=== PATIENT | female | born 1960 | race Caucasian/White ===

== ENCOUNTER 2018-07-09 14:22 | Inpatient (IN) | payer MEDICAID, OTHER ==
[~2018-07-09] VITALS: Ht 170.2 cm; Wt 77.0 kg
[~2018-07-09 14:22] MED LIST: CARAS GTB; PANT40TA3 PO; SPIR50TA PO
--- NOTE | 2018-07-09 14:38 | ERD ---
ER Documentation Chief Complaint Chief Complaint bib ra from street for sob, recent pneumonia HPI The patient is a 49-year-old homeless female, presenting to the ER because of acute dyspnea, O2 saturation was 85-90% on room air, wheezing bilaterally. She was treated with albuterol 5 mg nebulizer by EMS with some response. She re cently had pneumonia, denies fever, complains of cough, denies neck pain, chest pain, abdominal pain, vomiting, dizzy, diarrhea. History is limited due to her clinical condition Past medical history: Hepatitis C, history of GI bleed due to esophageal varices and esophagitis ROS All systems reviewed and are negative except as per history of present illness. Medications Home Meds Discontinued Scripts Pantoprazole* (Protonix*) 40 Mg Tablet.dr, 40 MG PO BID for 30 Days, TAB Prov:STALIN LONGORIA MD 11/30/15 Spironolactone* (Aldactone*) 50 Mg Tablet, 100 MG PO BID DIURETICS for 30 Days, #30 TAB Prov:STALIN LONGORIA MD 11/30/15 Sucralfate* (Carafate* (Pediatric)) 100 Mg/Ml Susp, 1 GM GTB QID for 30 Days, BOT Prov:STALIN LONGORIA MD 11/30/15 Allergies Allergies: Coded Allergies: No Known Allergy (Unverified , 07/09/18) PMhx/Soc Medical and Surgical Hx: pt denies Medical Hx, pt denies Surgical Hx History of Surgery: No Anesthesia Reaction: No Hx Neurological Disorder: No Hx Respiratory Disorders: Yes (asthma ) Hx Cardiac Disorders: No Hx Psychiatric Problems: No Hx Miscellaneous Medical Probl: No Hx Alcohol Use: Yes (ayesha one time few days ago. ) Hx Substance Use: No Hx Tobacco Use: Yes (4 a day. ) Smoking Status: Never smoker Physical Exam Vitals Vital Signs Date Temp Pulse Resp B/P (MAP) Pulse Ox O2 O2 Flow FiO2 Time Delivery Rate 07/09/18 112 18 122/80 98 Room Air 20:01 (94) 07/09/18 98.1 112 22 158/86 98 Room Air 4.0 16:30 (110) BIPAP 07/09/18 107 22 100 Nasal 6.0 15:01 Cannula 07/09/18 Venti Mask 10 14:40 07/09/18 Venti Mask 14:29 07/09/18 98.3 115 25 171/98 100 BIPAP 14:29 (122) 07/09/18 98.3 114 25 172/100 100 14:26 (124) Physical Exam Const: No acute distress. Head: Atraumatic. Eyes: Normal Conjunctiva. ENT: Normal External Ears, Nose and Mouth. Neck: Full range of motion. No meningismus. Resp: Tachypneic, Bilateral expiratory wheezes Cardio: Regular tachycardic Abd: Soft, non distended, normal bowel sounds, non tender. Skin: No petechiae or rashes. Back: No midline or flank tenderness. Ext: No cyanosis, or edema. Neur: Awake and alert. No focal deficit Psych: Normal Mood and Affect. Result Diagram: 07/09/18 1509 07/09/18 1509 Results 24 hrs Laboratory Tests Test 07/09/18 15:09 07/09/18 15:24 07/09/18 16:00 07/09/18 16:30 White Blood 6.8 10^3/ul Count Red Blood Count 4.37 10^6/ul Hemoglobin 9.0 g/dl Hematocrit 31.9 % Mean Corpuscular 73.0 fl Volume Mean Corpuscular 20.6 pg Hemoglobin Mean Corpuscular 28.2 g/dl Hemoglobin Giovanna nt Red Cell 19.0 % Distribution Width Platelet Count 171 10^3/UL Mean Platelet 10.1 fl Volume Immature 0.900 % Granulocytes % Neutrophils % 67.8 % Lymphocytes % 12.4 % Monocytes % 12.4 % Eosinophils % 6.1 % Basophils % 0.4 % Nucleated Red 0.0 /100WBC Blood Cells % Immature 0.060 10^3/ul Granulocytes # Neutrophils # 4.6 10^3/ul Lymphocytes # 0.8 10^3/ul Monocytes # 0.8 10^3/ul Eosinophils # 0.4 10^3/ul Basophils # 0.0 10^3/ul Nucleated Red 0.0 10^3/ul Blood Cells # Prothrombin Time 15.5 Sec Prothrombin Time 1.2 Ratio INR 1.22 International Normalized Ratio Activated 29.0 Sec Partial Thrombop last Time Sodium Level 135 mmol/L Potassium Level 4.4 mmol/L Chloride Level 102 mmol/L Carbon Dioxide 25 mmol/L Level Anion Gap 8 Blood Urea 12 mg/dl Nitrogen Creatinine 0.37 mg/dl Est Glomerular > 60 mL/min Filtrat Rate mL/min Glucose Level 107 mg/dl Calcium Level 8.3 mg/dl Total Bilirubin 0.9 mg/dl Direct Bilirubin 0.00 mg/dl Indirect 0.9 mg/dl Bilirubin Aspartate Amino 105 IU/L Transf (AST/SGOT ) Alanine 55 IU/L Aminotransferase (ALT/SGPT) Alkaline 135 IU/L Phosphatase Troponin I < 0.012 ng/ml Total Protein 8.0 g/dl Albumin 3.6 g/dl Globulin 4.40 g/dl Albumin/Globulin 0.81 Ratio POC Venous 1.9 mmol/L Lactate Blood Gas Blood arterial Specimen Source Arterial Blood 07/09/2018 4:05:0 Date Drawn 4 PM Arterial Blood 7.394 pH (Temp corrected) Arterial Blood 38.1 mmhg pCO2 (Temp correct) Arterial Blood 186.0 mmHG pO2 (Temp corrected) Arterial Blood 22.8 mmol/L HCO3 Arterial Blood -1.9 mmol/L Base Excess Arterial Blood 99.4 mmHG Oxygen Saturatio n Arturo Test ACCEPTAB Arterial Blood Right Radial Gas Puncture Site Arterial 0.9 % Blood Carboxyhem oglobin Arterial Blood 0.5 % Methemoglobin Blood Gas A-a O2 207.1 mmHg Differential Oxyhemoglobin 98.0 % Percent Blood Gas 37.0 C Temperature Blood Gas MASK - SIMPLE Modality FiO2 61.0 % Blood Gas DT Notified Whom Blood Gas 07/09/2018 4:22:5 Notified Time 8 PM Urine Color YELLOW Urine Clarity CLEAR Urine pH 5.0 Urine Specific 1.013 [place] Urine Ketones NEGATIVE mg/dL Urine Nitrite NEGATIVE mg/dL Urine Bilirubin NEGATIVE mg/dL Urine NEGATIVE mg/dL Urobilinogen Urine Leukocyte NEGATIVE Asmita/ul Esterase Urine 5 /HPF Microscopic RBC Urine 18 /HPF Microscopic WBC Urine Squamous FEW /HPF Epithelial Cells Urine Bacteria FEW /HPF Urine Hemoglobin 2+ mg/dL Urine Glucose NEGATIVE mg/dL Urine Total 2+ mg/dl Protein Test 07/09/18 17:24 POC Venous 3.0 mmol/L Lactate Current Medications Medications Dose Sig/Jagdeep Start Time Status Last (Trade) Ordered Route PRN Stop Time Admin Dose Reason Admin Sodium 1,980 ml BOLUS OVER 2 07/09/18 DC 07/09/18 Chloride HOURS STAT 14:39 07/09/18 15:18 (NS) IV* 14:41 3.75 mg ONCE STAT 07/09/18 DC 07/09/18 Levalbuterol INH 14:39 07/09/18 14:56 (Xopenex 14:41 Neb) Ipratropium 1.5 mg ONCE STAT 07/09/18 DC 07/09/18 [place] INH 14:39 07/09/18 14:57 (Atrovent 14:41 0.02% (Neb)) 125 mg ONCE ONCE 07/09/18 DC 07/09/18 Methylprednis IV 16:00 07/09/18 15:51 olone Sodium 16:01 Succinate (Solu-Medrol) Vancomycin 250 ml @ ONCE ONCE 07/09/18 DC 07/09/18 HCl 125 mls/hr IVPB 18:00 07/09/18 19:47 19:59 Cefepime HCl 50 ml @ ONCE ONCE 07/09/18 DC 07/09/18 100 mls/hr IVPB 18:00 07/09/18 18:08 18:29 IV Flush 3 ml PER 07/09/18 (NS 3 ml) PROTOCOL IV 18:30 Ondansetron 4 mg Q6H PRN 07/09/18 HCl (Zofran IV NAUSEA 18:30 Inj) AND/OR VOMITING 650 mg Q6H PRN 07/09/18 Acetaminophen PO PAIN 18:30 (Tylenol LEVEL 1-3 OR Tab) FEVER 40 mg DAILY@06 07/10/18 Pantoprazole PO 06:00 (Protonix Tab) Albuterol/ 3 ml Q4H RESP 07/09/18 Ipratropium THERAPY PRN 18:30 (Duoneb) HHN SHORTNESS OF BREATH Prednisone 40 mg DAILY PO 07/10/18 (Prednisone) 09:00 07/14/18 12:00 100 ml @ Q24H IVPB 07/09/18 Levofloxacin/ 100 mls/hr 19:30 Dextrose Procedures/[place] [id number] Radiology Main Line: [phone] DIAGNOSTIC IMAGING REPORT Patient: THADDEUS STUBBS : 1960 Age: 57 Sex: F MR #: [id number] DOS: 07/09/18 1541 Ordering MD: LAURA DELGADO MD Location: E/R Room/Bed: PROCEDURE: CT chest without contrast. CLINICAL INDICATION: Shortness of breath TECHNIQUE: CT scan of the chest without contrast was performed on a multi- slice CT scanner. The patient was scanned without administration of intravenous contrast. Coronal and sagittal reformatted images were obtained from the axial source images. One or more of the following dose reduction techniques were used: Automated exposure control. Adjustment of the mA and/or kV according to patient size. Use of iterative reconstruction technique. DICOM images are available DLP vol 223.89 mGy CTDI 6.29 mGy-cm COMPARISON: None. FINDINGS: Lungs: There is prominent bilateral diffuse airways wall thickening without occlusion. Subpleural mild scarring is seen. There is trace subpleural emphysema bilaterally. There is no lung consolidation or pleural effusion or pneumothorax. The airways are patent. There is no suspicious nodule or mass. Mediastinum: Normal. Cardiovascular: Aortic and coronary artery atherosclerotic calcifications are present. The vascular structures are normal in course and caliber. Lymph nodes: There are no enlarged axillary or mediastinal lymph nodes. Musculoskeletal: Degenerative changes are seen within the thoracic spine and shoulders with no acute osseous abnormality. Upper abdomen: There is a nodular appearance of the liver with the presence of prominent upper abdominal varices including a enlarged umbilical vein. Other: None IMPRESSION: Mild emphysema is present with subpleural scarring. There is diffuse bilateral prominent airways wall thickening suggestive for airways inflammation without airways occlusion. The lungs are otherwise clear. Atherosclerotic disease. Hepatic cirrhosis with varices. RPTAT: AA .Joselyn Ayon MD, MD Date Time Electronically viewed and signed by .Joselyn Ayon MD, MD on 07/09/2018 17:33 .J/ CC: LAURA DELGADO MD [id number] [place] [address] Radiology Main Line: [phone] DIAGNOSTIC IMAGING REPORT Patient: THADDEUS STUBBS : 1960 Age: 57 Sex: F MR #: [id number] DOS: 07/09/18 1439 Ordering MD: LAURA DELGADO MD Location: E/R Room/Bed: PROCEDURE: XR Chest. CLINICAL INDICATION: chest pain TECHNIQUE: Single frontal view of the chest was obtained COMPARISON: 11/26/15 FINDINGS: The heart and mediastinum are within normal limits. There is a 1.3 cm possible nodule in the left lower lobe. There is no focal infiltrate. There is no pleural effusion or pneumothorax. RPTAT: AA IMPRESSION: 1.3 cm possible nodule in the left lower lobe. Further evaluation with CT chest is recommended. .Fercho Sprague MD, MD Date Time Electronically viewed and signed by .Fercho Sprague MD, MD on 07/09/2018 15:1 8 .S/ CC: LAURA DELGADO MD [id number] EKG: Read by emergency physician Rate/Rhythm: Sinus tachycardia 110 beats/min QRS, ST, T-waves: No ST elevation, no T inversion, shortened NC interval Impression: Abnormal EKG MEDICAL MAKING DECISION: The patient is a 57-year-old female, presenting with acute severe sepsis, acute asthma exacerbation. She was treated with Xopenex 3.75 mg and Atrovent 1.5 mg continuous nebulizer over one hour, Solu-Medrol 125 mg IV, normosaline 30 ml millimeters per kilogram IV/vancomycin IV/cefepime IV for acute severe sepsis The differential diagnoses considered include but are not limited to pneumonia, aspiration pneumonia, COPD, PE, asthma MDM: Patient's infectious symptoms have not stabilized and the patient is at risk of rapid decompensation. The patient will be admitted for careful hydration, antibiotic therapy, and infectious source control. SEVERE SEPSIS CRITERIA: Infectious source:unknown End organ damage indicated by: Lactate > 2.0 mmol/L Acute Resp Failure (sat < 92% w/o oxygen) SEPSIS MANAGEMENT Time of recognition of severe sepsis: 5:45 pm 3 HOUR BUNDLE Blood cultures x 2 before broad-spectrum antibiotics: Yes 30 ml/kg NS bolus completed Initial lactate3 Repeat lactatepending SEPTIC SHOCK ASSESSMENT: No lactic acid > 4.0 No persistent hypotension (SBP < 90 or 40 mmHg drop, MAP < 65) despite 30 mL/kg IV fluid bolus CRITICAL CARE Critical care time 35 minutes Emergent fluid management while maintaining close respiratory support. Provision of immediate and broad-spectrum antibiotic therapy. Simultaneous assessment for possible sources in order to direct targeted therapy. Consideration for invasive and chemical support to prevent cardiopulmonary collapse. Critical care time is independent of procedures performed. Departure Diagnosis: Primary Impression: Severe sepsis Additional Impressions: Acute asthma Cirrhosis Anemia Condition: Stable Comments The patient's blood pressure was elevated (>120/80) but appears stable without evidence of hypertension emergency or urgency. The patient was counseled about the risks of hypertension and urged to pursue outpatient monitoring and therapy within a week with their primary care physician. I discussed the findings with the patient. I discussed the patient with the hospitalist Dr. Canseco at 5:40 PM. who was made aware of the lab, the treatment, the patient condition. The patient is admitted to [facility] Disclaimer: Inadvertent spelling and grammatical errors are likely due to EHR/dictation software use and do not reflect on the overall quality of patient care. Also, please note that the electronic time recorded on this note does not necessarily reflect the actual time of the patient encounter. LAURA DELGADO MD Jul 09, 2018 14:38
[2018-07-09] MEDS ORDERED: SODIUM CHLORIDE 0.9% 1L BAG IV* STA (14:39)
[2018-07-09] MEDS ORDERED: IPRATROPIUM (NEB) 0.5 MG/2.5 ML AMP INH STA (14:39)
[2018-07-09] MEDS ORDERED: LEVALBUTEROL (NEB) 1.25 MG/0.5 ML AMP INH STA (14:39)
[2018-07-09] MEDS ORDERED: METHYLPREDNISOLONE 125 MG INJ IV ONE (16:00)
[2018-07-09] MEDS ORDERED: VANCOMYCIN 1 GM (PMX) 250 ML IVPB ONE (18:00)
[2018-07-09] MEDS ORDERED: CEFEPIME 1GM/50 ML (PMX) 50 ML IVPB ONE (18:00)
[2018-07-09] MEDS ORDERED: ONDANSETRON 4 MG INJ IV PRN (18:30)
[2018-07-09] MEDS ORDERED: NACL 0.9% 3 ML SYG IV SCH (18:30)
[2018-07-09] MEDS ORDERED: ACETAMINOPHEN 325 MG TAB PO PRN (18:30)
--- NOTE | 2018-07-09 18:41 | HP ---
Date/Time of Note Date/Time of Note DATE: 07/09/18 TIME: 18:29 Assessment/Plan VTE Prophylaxis Pharmacological prophylaxis: NA/contraindicated Pharm contraindication: low risk/ambulating Lines/Catheters IV [facility] [place] Assessment/Plan Assessment/Plan 57 yo woman history of PUD presents with COPD exacerbation #Dyspnea - CT chest shows emphysema. This likely represents new COPD. - Will need outpatient PFTs to confirm diagnosis - For now continue prn nebulizers - prednisone 40mg daily x5 days #Pneumonia #bacteruria - Will treat with levofloxacin x7 days #Cirrhosis - Labs normal currently - Patient reports no more alcohol. #PUD - Cont PPI Result Diagram: 07/09/18 1509 07/09/18 1509 HPI/ROS Admit Date/Time Admit Date/Time Jul 09, 2018 Hx of Present Illness Ms. Quiroga is a homeless 57 yo woman who presents with acute onset SOB. She was in her usual state of health until 2-3 days ago when she developed shortness of breath and cough productive of yellow sputum. She has a red rescue inhaler which helped symptoms somewhat; but over the past few days the cough and dyspnea episodes have progressively worsened. Today was not relieved by inhaler so she called EMS. Patient did not have known respiratory problems during admission in 2016 for PUD. She says no hospitalizations since then. Rescue inhaler was given to her by a friend a few months ago. In the ED she was hypoxic requiring BiPAP. Tachy to 110s, afebrile, hyperte nsive. Got IV steroids and antibiotics with rapid improvement. ROS Denies weight loss, fever, chills, headache, dysphagia, sore throat, chest pain/pressure/palpitations, nausea, vomiting, abdominal pain, dysuria, hematuria. PMH/Family/Social Past Medical History Cirrhosis PUD Medications Current Medications Vancomycin HCl 250 ml @ 125 mls/hr ONCE ONCE IVPB ; Start 07/09/18 at 18:00; Stop 07/09/18 at 19:59 Cefepime HCl 50 ml @ 100 mls/hr ONCE ONCE IVPB Last administered on 07/09/18at 18:08; Admin Dose 100 MLS/HR; Start 07/09/18 at 18:00; Stop 07/09/18 at 18:29 Coded Allergies: No Known Allergy (Unverified , 07/09/18) Past Surgical History Past Surgical Hx: no surgical history Family History Significant Family History: no pertinent family hx Social History Homeless, lives on the [address] with . Alcohol Use: none Smoking Status: Current every day smoker (smokes 1 pack per week. ) Drug Use: marijuana Exam/Review of Systems Vital Signs Vitals Vital Signs Date Temp Pulse Resp B/P (MAP) Pulse Ox O2 O2 Flow FiO2 Time Delivery Rate 07/09/18 107 22 100 Nasal 6.0 15:01 Cannula 07/09/18 98.3 171/98 14:29 (122) Exam Exam Gen: Well appearing clean looking woman in no acute distress on nasal cannula Eyes: PERRL, no icterus HEENT: Clear oropharynx moist mucous membranes no ulcer Neck: No LAD, nontender. Card: Regular rate and rhythm, no murmurs Pulm: End expiratory wheezes diffusely. Abd: Soft, nontender, nondistended. No palpable hepatosplenomegaly. Ext: No cyanosis/clubbing/edema. Skin: warm dry well perfused. ALLISON BARNETT MD Jul 09, 2018 18:40
[2018-07-09 20:22] VITALS: PULSE 116
[2018-07-09 20:30] VITALS: BP 144/73; PULSE 116; RESP 20
[2018-07-09 21:12] VITALS: Ht 170.2 cm; Wt 77.0 kg
[2018-07-09] MEDS: LEVOFLOXACIN 500MG/D5W (PMX) 100 ML IVPB SCH (22:09)
[2018-07-09] MEDS: ALBUTEROL/IPRATROPIUM (NEB) 3 ML AMP HHN PRN (23:35)
[2018-07-09 23:50] VITALS: BP 157/88; PULSE 115; RESP 20
[2018-07-10] VITALS (12 sets, daily range): BP systolic 125–153; BP diastolic 55–78; PULSE 102–119; RESP 19–20
[2018-07-10] MEDS ORDERED: predniSONE 20 MG TAB PO SCH
[2018-07-10] MEDS ORDERED: GUAIFENESIN/DM 5ML CUP ONE (01:13)
[2018-07-10] MEDS: GUAIFENESIN/DM 5ML CUP PO PRN ×2 (01:50→05:29)
[2018-07-10] MEDS: PANTOPRAZOLE (EC) 40 MG TAB PO SCH (05:29)
[2018-07-10] MEDS: ALBUTEROL/IPRATROPIUM (NEB) 3 ML AMP HHN PRN ×2 (05:56→12:41)
[2018-07-10] MEDS: predniSONE 20 MG TAB PO SCH (08:27)
[2018-07-10] MEDS ORDERED: INFLUENZA VIRUS VACCINE 0.5 ML (DISPENSING) IM* ONE (09:00)
--- NOTE | 2018-07-10 09:16 | PN ---
Date/Time of Note Date/Time of Note DATE: 07/10/18 TIME: 09:16 Assessment/Plan VTE Prophylaxis SCD contraindicated: low risk/ambulating Pharmacological prophylaxis: NA/contraindicated Pharm contraindication: low risk/ambulating Lines/Catheters IV Catheter Type (from Nrs): Peripheral IV Urinary Cath still in place: No Assessment/Plan Assessment/Plan 1. Acute shortness of breath secondary to COPD - CT scan shows emphysematous changes. patient admits to quitting smoking a few weeks ago - Currently on steroids, IV antibiotics, and bronchodilators - Nebs PRN - O2 as needed to maintain saturations 2. tobacco abuse - refusing nicotine patch 3. anemia - will check iron studies - denies any GI bleeding 4. Homelessness - SW consultation appreciated 5. UTI - Urine cx noted and awaiting sensitivities - will continue current antibiotics 6. Disposition - Continue monitoring for improvement in respiratory status - awaiting urine culture sensitivities Result Diagram: 07/10/18 0543 07/10/18 0543 Results 24hrs Laboratory Tests Test 07/09/18 15:09 07/09/18 15:23 07/09/18 15:24 07/09/18 16:00 White Blood Count 6.8 Red Blood Count 4.37 # Hemoglobin 9.0 L Hematocrit 31.9 L Mean Corpuscular 73.0 L Volume Mean Corpuscular 20.6 #L Hemoglobin Mean Corpuscular 28.2 L Hemoglobin Concent Red Cell 19.0 #H Distribution Width Platelet Count 171 Mean Platelet 10.1 # Volume Immature 0.900 H Granulocytes % Neutrophils % 67.8 Lymphocytes % 12.4 L Monocytes % 12.4 H Eosinophils % 6.1 Basophils % 0.4 Nucleated Red 0.0 Blood Cells % Immature 0.060 H Granulocytes # Neutrophils # 4.6 Lymphocytes # 0.8 Monocytes # 0.8 Eosinophils # 0.4 Basophils # 0.0 Nucleated Red 0.0 Blood Cells # Prothrombin Time 15.5 H Prothrombin Time 1.2 Ratio INR International 1.22 Normalized Ratio Activated 29.[address] Time Sodium Level 135 Potassium Level 4.4 Chloride Level 102 Carbon Dioxide 25 Level Anion Gap 8 Blood Urea 12 Nitrogen Creatinine 0.37 L Est Glomerular > 60 Filtrat Rate mL/min Glucose Level 107 Calcium Level 8.3 L Total Bilirubin 0.9 Direct Bilirubin 0.00 Indirect Bilirubin 0.9 Aspartate Amino 105 H Transf (AST/SGOT) Alanine 55 Aminotransferase ( ALT/SGPT) Alkaline 135 H Phosphatase Troponin I < 0.012 Total Protein 8.0 Albumin 3.6 Globulin 4.40 H Albumin/Globulin 0.81 Ratio Ethyl Alcohol < 10.0 H Level POC Venous Lactate 1.9 Blood Gas Specimen Blood arterial Source Arterial Blood 07/09/2018 4:05:04 Date Drawn PM Arterial Blood pH 7.394 (Temp corrected) Arterial Blood 38.1 pCO2 (Temp correct) Arterial Blood pO2 186.0 H (Temp corrected) Arterial Blood 22.8 HCO3 Arterial Blood -1.9 Base Excess Arterial Blood 99.4 H Oxygen Saturation Arturo Test ACCEPTAB Arterial Blood Gas Right Radial Puncture Site Arterial 0.9 Blood Carboxyhemog lobin Arterial Blood 0.5 Methemoglobin Blood Gas A-a O2 207.1 H Differential Oxyhemoglobin 98.0 Percent Blood Gas 37.0 Temperature Blood Gas Modality MASK - SIMPLE FiO2 61.0 Blood Gas Notified DT Whom Blood Gas Notified 07/09/2018 4:22:58 Time PM Test 07/09/18 16:30 07/09/18 17:24 07/09/18 20:01 07/10/18 05:30 Urine Color YELLOW Urine Clarity CLEAR Urine pH 5.0 Urine Specific 1.013 [place] Urine Ketones NEGATIVE Urine Nitrite NEGATIVE Urine Bilirubin NEGATIVE Urine Urobilinogen NEGATIVE Urine Leukocyte NEGATIVE Esterase Urine Microscopic 5 RBC Urine Microscopic 18 H WBC Urine Squamous FEW Epithelial Cells Urine Bacteria FEW A Urine Hemoglobin 2+ H Urine Glucose NEGATIVE Urine Total 2+ H Protein POC Venous Lactate 3.0 *H Lactic Acid Level 2.9 *H Urine Opiates Negative Screen Urine Barbiturates Negative Urine Amphetamines POSITIVE Screen Urine Negative Benzodiazepines Screen Urine Cocaine Negative Screen Urine Cannabinoids Negative Test 07/10/18 05:43 White Blood Count 6.5 Red Blood Count 3.76 L Hemoglobin 8.1 L Hematocrit 27.9 L Mean Corpuscular 74.2 L Volume Mean Corpuscular 21.5 L Hemoglobin Mean Corpuscular 29.0 L Hemoglobin Concent Red Cell 19.0 H Distribution Width Platelet Count 162 Mean Platelet 9.2 Volume Immature 0.900 H Granulocytes % Neutrophils % 89.7 H Lymphocytes % 5.6 L Monocytes % 3.6 Eosinophils % 0.0 Basophils % 0.2 Nucleated Red 0.0 Blood Cells % Immature 0.060 H Granulocytes # Neutrophils # 5.8 Lymphocytes # 0.4 L Monocytes # 0.2 L Eosinophils # 0.0 Basophils # 0.0 Nucleated Red 0.0 Blood Cells # Sodium Level 142 Potassium Level 4.4 Chloride Level 107 Carbon Dioxide 27 Level Anion Gap 8 Blood Urea 16 Nitrogen Creatinine 0.39 L Est Glomerular > 60 Filtrat Rate mL/min Glucose Level 125 Hemoglobin A1c 5.3 Lactic Acid Level 1.4 Calcium Level 8.5 Phosphorus Level 3.9 Magnesium Level 2.0 Total Bilirubin 0.4 Direct Bilirubin 0.00 Indirect Bilirubin 0.4 Aspartate Amino 74 H Transf (AST/SGOT) Alanine 56 Aminotransferase ( ALT/SGPT) Alkaline 107 Phosphatase B-Type Natriuretic 263 H Peptide Total Protein 6.8 # Albumin 3.0 L Globulin 3.80 H Albumin/Globulin 0.78 Ratio Thyroid 0.272 L Stimulating Hormone (TSH) Subjective 24 Hr Interval Summary Free Text/Dictation Patient still with shortness of breath and productive cough with yellow sputum. Exam/Review of Systems Vital Signs Vitals Vital Signs Date Temp Pulse Resp B/P (MAP) Pulse Ox O2 O2 Flow FiO2 Time Delivery Rate 07/10/18 106 08:00 07/10/18 98.0 20 133/63 91 07:28 (86) 07/10/18 Nasal 3.0 05:56 Cannula Intake and Output 07/09/18 07/09/18 07/10/18 1515:00 23:00 07:00 IntakeIntake Total 250 ml 700 ml BalanceBalance 250 ml 700 ml Exam General: Patient is pleasant female, no acute distress Neck: Supple Chest: Nontender to palpation Lungs: Clear to auscultation bilaterally no crackles rales or wheezing Heart: Normal S1-S2, Regular rhythm and rate. No overt murmurs appreciated on auscultation Abdomen: Soft , nontender, nondistended , bowel sounds are present. No guarding no rebound tenderness Extremities: no cyanosis, clubbing, or edema Medications Medications Current Medications IV Flush (NS 3 ml) 3 ml PER PROTOCOL IV ; Start 07/09/18 at 18:30 Ondansetron HCl (Zofran Inj) 4 mg Q6H PRN IV NAUSEA AND/OR VOMITING; Start 07/09/18 at 18:30 Acetaminophen (Tylenol Tab) 650 mg Q6H PRN PO PAIN LEVEL 1-3 OR FEVER Last administered on 07/09/18 22:53; Admin Dose 650 MG; Start 07/09/18 at 18:30 Pantoprazole (Protonix Tab) 40 mg DAILY@06 PO Last administered on 07/10/18 05:29; Admin Dose 40 MG; Start 07/10/18 at 06:00 Albuterol/ Ipratropium (Duoneb) 3 ml Q4H RESP THERAPY PRN HHN SHORTNESS OF BREATH Last administered on 07/10/18 05:56; Admin Dose 3 ML; Start 07/09/18 at 1 8:30 Prednisone (Prednisone) 40 mg DAILY PO Last administered on 07/10/18 08:27; Admin Dose 40 MG; Start 07/10/18 at 09:00; Stop 07/14/18 at 12:00 Levofloxacin/ Dextrose 100 ml @ 100 mls/hr Q24H IVPB Last administered on 07/09/18at 22:09; Admin Dose 100 MLS/HR; Start 07/09/18 at 19:30 Guaifenesin/ Dextromethorphan (Robitussin Dm Liquid Cup) 10 ml Q4H PRN PO COUGH Last administered on 07/10/18 05:29; Admin Dose 10 ML; Start 07/10/18 at 01:30 GINA ABDI MD Jul 10, 2018 09:16
[2018-07-10] MEDS: LEVALBUTEROL (NEB) 0.63 MG/3 ML AMP HHN SCH ×2 (12:45→20:07)
[2018-07-10] MEDS ORDERED: LEVALBUTEROL (NEB) 0.63 MG/3 ML AMP HHN PRN (16:30)
[2018-07-10] MEDS ORDERED: VANCOMYCIN IV PER PHARMACY XX SCH (16:30)
[2018-07-10] MEDS: TIOTROPIUM 18 MCG CAPSULE INHA DEV INH SCH (17:58)
[2018-07-10] MEDS: VANCOMYCIN HCL 1.25 GM in SOD CHLORIDE 0.9% 250 ML IVPB SCH (17:58)
[2018-07-10] MEDS: FLUTICASONE/VILANTEROL 100-25 INH SCH (17:59)
[2018-07-10] MEDS: LEVOFLOXACIN 500MG/D5W (PMX) 100 ML IVPB SCH (21:22)
[2018-07-11] VITALS (11 sets, daily range): BP systolic 121–168; BP diastolic 63–81; PULSE 87–121; RESP 18–20
[2018-07-11] MEDS: LEVALBUTEROL (NEB) 0.63 MG/3 ML AMP HHN SCH ×4 (01:40→20:20)
[2018-07-11] MEDS: VANCOMYCIN HCL 1.25 GM in SOD CHLORIDE 0.9% 250 ML IVPB SCH (05:19)
[2018-07-11] MEDS: TIOTROPIUM 18 MCG CAPSULE INHA DEV INH SCH (08:11)
[2018-07-11] MEDS: predniSONE 20 MG TAB PO SCH (08:11)
[2018-07-11] MEDS: PANTOPRAZOLE (EC) 40 MG TAB PO SCH (08:11)
[2018-07-11] MEDS: FLUTICASONE/VILANTEROL 100-25 INH SCH (08:12)
--- NOTE | 2018-07-11 08:59 | PN ---
Date/Time of Note Date/Time of Note DATE: 07/11/18 TIME: 08:59 Assessment/Plan VTE Prophylaxis Risk score (from Ns)>0 risk: 3 SCD applied (from Ns): Yes Pharmacological prophylaxis: other Lines/Catheters IV [facility]ter Type [facility]from [facility] Saline Lock Urinary Cath still in place: No Assessment/Plan Assessment/Plan 1. Acute shortness of breath secondary to COPD - Pulmonology on board and appreciate recommendations. Continue on IV steroids, nebs, and antibitoics - CT scan shows emphysematous changes. patient admits to quitting smoking a few weeks ago - Nebs PRN - O2 as needed to maintain saturations 2. tobacco abuse - refusing nicotine patch 3. anemia - denies any GI bleeding 4. Homelessness - SW consultation appreciated 5. UTI - will continue current antibiotics 6. Disposition - Continue monitoring for improvement in respiratory status Result Diagram: 07/10/1843 07/10/1843 Subjective 24 Hr Interval Summary Free Text/Dictation Patient states shes feeling better this am but still with tachycardia and associated shortness of breath with ambulation. No acute overnight event. Exam/Review of Systems Vital Signs Vitals Vital Signs Date Temp Pulse Resp B/P (MAP) Pulse Ox O2 O2 Flow FiO2 Time Delivery Rate 07/11/18 3.0 08:46 07/11/18 102 20 93 Nasal 08:46 Cannula 07/11/18 98.3 168/81 07:33 (110) Intake and Output 07/10/18 07/10/18 07/11/18 1515:00 23:00 07:00 IntakeIntake Total 700 ml BalanceBalance 700 ml Exam General: Patient is pleasant female, no acute distress Neck: Supple Chest: Nontender to palpation Lungs: Clear to auscultation bilaterally, diminished, no crackles rales or wheezing Heart: Normal S1-S2, Regular rhythm and rate. No overt murmurs appreciated on auscultation Abdomen: Soft , nontender, nondistended , bowel sounds are present. No guarding no rebound tenderness Extremities: no cyanosis, clubbing, or edema Medications Medications Current Medications IV Flush (NS 3 ml) 3 ml PER PROTOCOL IV ; Start 07/09/18 at 18:30 Ondansetron HCl (Zofran Inj) 4 mg Q6H PRN IV NAUSEA AND/OR VOMITING; Start 07/09/18 at 18:30 Acetaminophen (Tylenol Tab) 650 mg Q6H PRN PO PAIN LEVEL 1-3 OR FEVER Last administered on 07/09/18at 22:53; Admin Dose 650 MG; Start 07/09/18 at 18:30 Pantoprazole (Protonix Tab) 40 mg DAILY@06 PO Last administered on 07/11/18 08:11; Admin Dose 40 MG; Start 07/10/18 at 06:00 Prednisone (Prednisone) 40 mg DAILY PO Last administered on 07/11/18 08:11; Admin Dose 40 MG; Start 07/10/18 at 09:00; Stop 07/14/18 at 12:00 Levofloxacin/ Dextrose 100 ml @ 100 mls/hr Q24H IVPB Last administered on 07/10/18 21:22; Admin Dose 100 MLS/HR; Start 07/09/18 at 19:30 Guaifenesin/ Dextromethorphan (Robitussin Dm Liquid Cup) 10 ml Q4H PRN PO COUGH Last administered on 07/10/18 05:29; Admin Dose 10 ML; Start 07/10/18 at 01:30 Levalbuterol (Xopenex Neb) 0.63 mg Q6H RESP THERAPY HHN Last administered on 07/11/18 08:45; Admin Dose 0.63 MG; Start 07/10/18 at 14:00 Vancomycin HCl (Vanco Iv Per Pharmacy) VANCOMYCIN PER PHARMACY PER PROTOCOL XX ; Start 07/10/18 at 16:30 Tiotropium [place] (Spiriva) 1 inh DAILY INH Last administered on 07/11/18 08:11; Admin Dose 1 INH; Start 07/10/18 at 16:30 Fluticasone/ Vilanterol (Breo Ellipta 100-25 Mcg Inh) 1 inh DAILY INH Last administered on 07/11/18 08:12; Admin Dose 1 INH; Start 07/10/18 at 16:30 Levalbuterol (Xopenex Neb) 0.63 mg Q2H RESP THERAPY PRN HHN shortness of breath; Start 07/10/18 at 16:30 Influenza Virus Vaccine Quadrival (Fluzone) 0.5 ml ONCE ONCE IM* ; Start 07/12/18 at 17:00; Stop 07/12/18 at 17:01 Vancomycin HCl 1.25 gm/Sodium Chloride 250 ml @ 83.333 mls/ hr Q12H IVPB Last administered on 07/11/18at 05:19; Admin Dose 83.333 MLS/HR; Start 07/10/18 at 17:30 GINA ABDI MD Jul 11, 2018 08:59
--- NOTE | 2018-07-11 11:56 | CONS ---
DATE OF ADMISSION: 07/09/2018 DATE OF CONSULTATION: REASON FOR CONSULTATION: Shortness of breath. Thank you, Dr. Hawkins, for this consultation. HISTORY OF PRESENT ILLNESS: This is a 57-year-old lady currently homeless, extensive tobacco history ongoing until this admission, came in with increasing shortness of breath, cough, wheezing and a CT chest demonstrating emphysematous changes. PAST MEDICAL HISTORY: 1. COPD. 2. Cirrhosis. 3. Peptic ulcer disease. MEDICATIONS: Per chart. ALLERGIES: NONE. SOCIAL HISTORY: Positive tobacco history. SYSTEMS REVIEW: A 12-point review of systems was negative other than that mentioned. PHYSICAL EXAMINATION: GENERAL: Chronically ill-appearing lady, opens eyes to voice. No accessory muscle use. VITAL SIGNS: Temperature 98, pulse is 100, blood pressure 168/81, O2 saturation 96% on 3 liters nasa l cannula. NECK: Supple. No JVD or lymphadenopathy. CARDIAC: S1, S2, no added sounds or murmurs. CHEST: Diminished air entry with diffuse bilateral expiratory wheezing. ABDOMEN: Soft, nontender. No guarding or rebound. EXTREMITIES: No cyanosis, clubbing or edema. NEUROLOGIC: Generalized weakness. IMPRESSION: 1. Likely chronic obstructive pulmonary disease exacerbation with acute hypoxemic respiratory failur e. 2. Ongoing continued tobacco use. RECOMMENDATIONS: 1. IV steroids. 2. Bronchodilators. 3. Agree with antibiotics for possible tracheobronchitis. 4. Advice on smoking cessation. 5. Nicotine patch for nicotine withdrawal. Dictated By: YAN MENDEZ MD SV/NTS Conf#: [id number] DID#: [id number] CC: ALLISON BARNETT MD; GINA HAWKINS MD;*End*
[2018-07-11] MEDS: METHYLPREDNISOLONE 40 MG INJ IV SCH ×2 (11:57→22:14)
[2018-07-11] MEDS: NICOTINE (21 MG/24 HR) PATCH TRANSDERM SCH (13:07)
[2018-07-11] MEDS: GUAIFENESIN/DM 5ML CUP PO PRN (16:20)
[2018-07-11] MEDS: LEVOFLOXACIN 500MG/D5W (PMX) 100 ML IVPB SCH (19:03)
[2018-07-11] MEDS: ARFORMOTEROL TARTRATE 15MCG/2 ML AMP NEB SCH (20:20)
[2018-07-12] VITALS (13 sets, daily range): BP systolic 116–150; BP diastolic 58–77; PULSE 97–115; RESP 17–20
[2018-07-12] MEDS: LEVALBUTEROL (NEB) 0.63 MG/3 ML AMP HHN SCH ×4 (01:51→20:28)
[2018-07-12] MEDS: METHYLPREDNISOLONE 40 MG INJ IV SCH ×2 (05:48→20:09)
[2018-07-12] MEDS: PANTOPRAZOLE (EC) 40 MG TAB PO SCH (05:48)
--- NOTE | 2018-07-12 09:11 | PN ---
Date/Time of Note Date/Time of Note DATE: 07/12/18 TIME: 09:11 Assessment/Plan VTE Prophylaxis Risk score (from [facility])>0 risk: 3 SCD applied (from Ns): Yes Pharmacological prophylaxis: heparin Lines/Catheters IV Catheter Type (from [facility] Saline Lock Urinary Cath still in place: No Assessment/Plan Assessment/Plan 1. Acute shortness of breath secondary to COPD - Will taper steroids as tolerated and continued on antibiotics and neb treatments - Pulmonology on board and appreciate recommendations. - CT scan shows emphysematous changes - Nebs PRN - O2 as needed to maintain saturations 2. tobacco abuse - refusing nicotine patch 3. anemia - denies any GI bleeding 4. Homelessness - SW consultation appreciated 5. UTI - will continue current antibiotics 6. Disposition - Still with shortness of breath and tachycardia. Will continue to monitor for improvement in overall condition Result Diagram: 07/12/18 0638 07/10/18 0543 Results 24hrs Laboratory Tests Test 07/12/18 06:38 White Blood Count 9.2 # Red Blood Count 3.85 L Hemoglobin 8.2 L Hematocrit 28.4 L Mean Corpuscular Volume 73.8 L Mean Corpuscular Hemoglobin 21.3 L Mean Corpuscular Hemoglobin Concent 28.9 L Red Cell Distribution Width 20.1 H Platelet Count 169 Mean Platelet Volume 9.3 Immature Granulocytes % 1.200 H Neutrophils % 84.8 H Lymphocytes % 8.2 L Monocytes % 5.7 Eosinophils % 0.0 Basophils % 0.1 Nucleated Red Blood Cells % 0.0 Immature Granulocytes # 0.110 H Neutrophils # 7.8 H Lymphocytes # 0.8 Monocytes # 0.5 Eosinophils # 0.0 Basophils # 0.0 Nucleated Red Blood Cells # 0.0 Iron Level 19 L Total Iron Binding Capacity 393 Percent Iron Saturation 5 L Subjective 24 Hr Interval Summary Free Text/Dictation Patient states shes feeling better and only with occasional tachycardia while ambulation. Denies any acute overnight events. Exam/Review of Systems Vital Signs Vitals Vital Signs Date Temp Pulse Resp B/P (MAP) Pulse Ox O2 O2 Flow FiO2 Time Delivery Rate 07/12/18 92 18 91 Nasal 2.0 09:01 Cannula 07/12/18 98.4 150/76 07:32 (100) Intake and Output 07/11/18 07/11/18 07/12/18 1414:59 22:59 06:59 IntakeIntake Total 700 ml BalanceBalance 700 ml Exam General: Patient is pleasant female, no acute distress Neck: Supple Chest: Nontender to palpation Lungs: Clear but diminished, mild expiratory wheezing Heart: Normal S1-S2, Regular rhythm and rate. No overt murmurs appreciated on auscultation Abdomen: Soft , nontender, nondistended , bowel sounds are present. No guarding no rebound tenderness Extremities: no cyanosis, clubbing, or edema Medications Medications Current Medications IV Flush (NS 3 ml) 3 ml PER PROTOCOL IV ; Start 07/09/18 at 18:30 Ondansetron HCl (Zofran Inj) 4 mg Q6H PRN IV NAUSEA AND/OR VOMITING; Start 07/09/18 at 18:30 Acetaminophen (Tylenol Tab) 650 mg Q6H PRN PO PAIN LEVEL 1-3 OR FEVER Last administered on 07/09/18at 22:53; Admin Dose 650 MG; Start 07/09/18 at 18:30 Pantoprazole (Protonix Tab) 40 mg DAILY@06 PO Last administered on 07/12/18at 05:48; Admin Dose 40 MG; Start 07/10/18 at 06:00 Levofloxacin/ Dextrose 100 ml @ 100 mls/hr Q24H IVPB Last administered on 07/11/18 19:03; Admin Dose 100 MLS/HR; Start 07/09/18 at 19:30 Guaifenesin/ Dextromethorphan (Robitussin Dm Liquid Cup) 10 ml Q4H PRN PO COUGH Last administered on 07/11/18 16:20; Admin Dose 10 ML; Start 07/10/18 at 01:30 Levalbuterol (Xopenex Neb) 0.63 mg Q6H RESP THERAPY HHN Last administered on 07/12/18 09:01; Admin Dose 0.63 MG; Start 07/10/18 at 14:00 Tiotropium [place] (Spiriva) 1 inh DAILY INH Last administered on 07/11/18 08:11; Admin Dose 1 INH; Start 07/10/18 at 16:30 Fluticasone/ Vilanterol (Breo Ellipta 100-25 Mcg Inh) 1 inh DAILY INH Last administered on 07/11/18 08:12; Admin Dose 1 INH; Start 07/10/18 at 16:30 Levalbuterol (Xopenex Neb) 0.63 mg Q2H RESP THERAPY PRN HHN shortness of breath; Start 07/10/18 at 16:30 Influenza Virus Vaccine Quadrival (Fluzone) 0.5 ml ONCE ONCE IM* ; Start 07/12/18 at 17:00; Stop 07/12/18 at 17:01 Methylprednisolone Sodium Succinate (Solu-Medrol) 40 mg Q8 IV Last administered on 07/12/18at 05:48; Admin Dose 40 MG; Start 07/11/18 at 12:00 Nicotine (Nicoderm 21 Mg/ 24hr) 1 patch DAILY TRANSDERM Last administered on 07/11/18at 13:07; Admin Dose 1 PATCH; Start 07/11/18 at 12:00 Arformoterol Tartrate (Brovana (Neb)) 2 ml BID RESP THERAPY NEB Last administered on 07/11/18at 20:20; Admin Dose 2 ML; Start 07/11/18 at 20:00 GINA ABDI MD Jul 12, 2018 09:11
[2018-07-12] MEDS: ARFORMOTEROL TARTRATE 15MCG/2 ML AMP NEB SCH ×2 (09:20→20:28)
[2018-07-12] MEDS: FLUTICASONE/VILANTEROL 100-25 INH SCH (09:32)
[2018-07-12] MEDS: TIOTROPIUM 18 MCG CAPSULE INHA DEV INH SCH (09:33)
[2018-07-12] MEDS: SOD FERRIC GLUC COMPLX 125 MG in SOD CHLORIDE 0.9% 100 ML IVPB SCH (13:59)
[2018-07-12] MEDS: NICOTINE (21 MG/24 HR) PATCH TRANSDERM SCH (14:03)
[2018-07-12] MEDS ORDERED: INFLUENZA VIRUS VACCINE 0.5 ML (DISPENSING) IM* ONE (17:00)
[2018-07-12] MEDS: LEVOFLOXACIN 500MG/D5W (PMX) 100 ML IVPB SCH (18:36)
[2018-07-13] VITALS (12 sets, daily range): BP systolic 132–140; BP diastolic 64–81; PULSE 98–119; RESP 18–20
[2018-07-13] MEDS: LEVALBUTEROL (NEB) 0.63 MG/3 ML AMP HHN SCH ×4 (02:14→19:31)
[2018-07-13] MEDS: PANTOPRAZOLE (EC) 40 MG TAB PO SCH (05:18)
[2018-07-13] MEDS: ARFORMOTEROL TARTRATE 15MCG/2 ML AMP NEB SCH ×2 (07:38→19:31)
--- NOTE | 2018-07-13 09:02 | PN ---
Date/Time of Note Date/Time of Note DATE: 07/13/18 TIME: 09:02 Assessment/Plan VTE Prophylaxis Risk score (from Ns)>0 risk: 3 SCD applied (from Ns): Yes Pharmacological prophylaxis: LMWH Lines/Catheters IV Catheter Type (from [facility] Saline Lock Urinary Cath still in place: No Assessment/Plan Assessment/Plan 1. Acute shortness of breath secondary to COPD - Improving and will transition to PO steroids tomorrow - Pulmonology on board and appreciate recommendations. - CT scan shows emphysematous changes - Nebs PRN - Wean O2 as tolerated 2. tobacco abuse - refusing nicotine patch 3. anemia - denies any GI bleeding 4. Homelessness - consultation appreciated 5. UTI - will continue current antibiotics 6. Disposition - Will change to PO steroids in the am and continue to wean off O2. Once respiratory status optimized can d/c home in next 1-2 days Result Diagram: 07/13/18 0604 07/10/18 0543 Results 24hrs Laboratory Tests Test 07/13/18 06:04 White Blood Count 9.1 Red Blood Count 3.88 L Hemoglobin 8.3 L Hematocrit 28.4 L Mean Corpuscular Volume 73.2 L Mean Corpuscular Hemoglobin 21.4 L Mean Corpuscular Hemoglobin Concent 29.2 L Red Cell Distribution Width 20.2 H Platelet Count 191 Mean Platelet Volume 9.8 Immature Granulocytes % 2.600 H Neutrophils % 78.9 H Lymphocytes % 10.7 L Monocytes % 7.7 Eosinophils % 0.0 Basophils % 0.1 Nucleated Red Blood Cells % 0.0 Immature Granulocytes # 0.240 H Neutrophils # 7.2 Lymphocytes # 1.0 Monocytes # 0.7 Eosinophils # 0.0 Basophils # 0.0 Nucleated Red Blood Cells # 0.0 Subjective 24 Hr Interval Summary Free Text/Dictation Patient states shes feeling better and ambulating around room with less shortness of breath. No acute overnight events. Exam/Review of Systems Vital Signs Vitals Vital Signs Date Temp Pulse Resp B/P (MAP) Pulse Ox O2 O2 Flow FiO2 Time Delivery Rate 07/13/18 107 20 93 Nasal 4.0 07:38 Cannula 07/13/18 95.7 132/67 07:27 (88) Intake and Output 07/12/18 07/12/18 07/13/18 1515:00 23:00 07:00 IntakeIntake Total 850 ml 800 ml BalanceBalance 850 ml 800 ml Exam General: Patient is pleasant female, no acute distress Neck: Supple Chest: Nontender to palpation Lungs: Clear but diminished, no wheezing or crackles appreciated Heart: Normal S1-S2, Regular rhythm and rate. No overt murmurs appreciated on auscultation Abdomen: Soft , nontender, nondistended , bowel sounds are present. No guarding no rebound tenderness Extremities: no cyanosis, clubbing, or edema Medications Medications Current Medications IV Flush (NS 3 ml) 3 ml PER PROTOCOL IV ; Start 07/09/18 at 18:30 Ondansetron HCl (Zofran Inj) 4 mg Q6H PRN IV NAUSEA AND/OR VOMITING; Start 07/09/18 at 18:30 Acetaminophen (Tylenol Tab) 650 mg Q6H PRN PO PAIN LEVEL 1-3 OR FEVER Last administered on 07/09/18 22:53; Admin Dose 650 MG; Start 07/09/18 at 18:30 Pantoprazole (Protonix Tab) 40 mg DAILY@06 PO Last administered on 07/13/18 05:18; Admin Dose 40 MG; Start 07/10/18 at 06:00 Levofloxacin/ Dextrose 100 ml @ 100 mls/hr Q24H IVPB Last administered on 07/12/18 18:36; Admin Dose 100 MLS/HR; Start 07/09/18 at 19:30 Guaifenesin/ Dextromethorphan (Robitussin Dm Liquid Cup) 10 ml Q4H PRN PO COUGH Last administered on 07/11/18 16:20; Admin Dose 10 ML; Start 07/10/18 at 01:30 Levalbuterol (Xopenex Neb) 0.63 mg Q6H RESP THERAPY HHN Last administered on 07/13/18 07:38; Admin Dose 0.63 MG; Start 07/10/18 at 14:00 Tiotropium [place] (Spiriva) 1 inh DAILY INH Last administered on 07/12/18 09:33; Admin Dose 1 INH; Start 07/10/18 at 16:30 Fluticasone/ Vilanterol (Breo Ellipta 100-25 Mcg Inh) 1 inh DAILY INH Last administered on 07/12/18 09:32; Admin Dose 1 INH; Start 07/10/18 at 16:30 Levalbuterol (Xopenex Neb) 0.63 mg Q2H RESP THERAPY PRN HHN shortness of breath; Start 07/10/18 at 16:30 Nicotine (Nicoderm 21 Mg/ 24hr) 1 patch DAILY TRANSDERM Last administered on 07/12/18at 14:03; Admin Dose 1 PATCH; Start 07/11/18 at 12:00 Arformoterol Tartrate (Brovana (Neb)) 2 ml BID RESP THERAPY NEB Last administered on 07/13/18at 07:38; Admin Dose 2 ML; Start 07/11/18 at 20:00 Ferric Sodium Gluconate Complex 125 mg/Sodium Chloride 100 ml @ 100 mls/hr DAILY@1300 IVPB Last administered on 07/12/18at 13:59; Admin Dose 100 MLS/HR; Start 07/12/18 at 13:00; Stop 07/14/18 at 13:59 Methylprednisolone Sodium Succinate (Solu-Medrol) 40 mg BID IV Last administered on 07/12/18at 20:09; Admin Dose 40 MG; Start 07/12/18 at 21:00 GINA ABDI MD Jul 13, 2018 09:02
[2018-07-13] MEDS: METHYLPREDNISOLONE 40 MG INJ IV SCH ×2 (09:14→20:36)
[2018-07-13] MEDS: TIOTROPIUM 18 MCG CAPSULE INHA DEV INH SCH (09:15)
[2018-07-13] MEDS: FLUTICASONE/VILANTEROL 100-25 INH SCH (09:15)
[2018-07-13] MEDS: NICOTINE (21 MG/24 HR) PATCH TRANSDERM SCH (09:15)
--- NOTE | 2018-07-13 12:12 | CONS ---
Date/Time of Note Date/Time of Note DATE: 07/13/18 TIME: 12:11 Assessment/Plan Assessment/Plan Result Diagram: 07/13/18 0604 07/10/18 0543 Results 24hrs Laboratory Tests Test 07/13/18 06:04 White Blood Count 9.1 Red Blood Count 3.88 L Hemoglobin 8.3 L Hematocrit 28.4 L Mean Corpuscular Volume 73.2 L Mean Corpuscular Hemoglobin 21.4 L Mean Corpuscular Hemoglobin Concent 29.2 L Red Cell Distribution Width 20.2 H Platelet Count 191 Mean Platelet Volume 9.8 Immature Granulocytes % 2.600 H Neutrophils % 78.9 H Lymphocytes % 10.7 L Monocytes % 7.7 Eosinophils % 0.0 Basophils % 0.1 Nucleated Red Blood Cells % 0.0 Immature Granulocytes # 0.240 H Neutrophils # 7.2 Lymphocytes # 1.0 Monocytes # 0.7 Eosinophils # 0.0 Basophils # 0.0 Nucleated Red Blood Cells # 0.0 Consultation Date/Type/Reason Admit Date/Time Jul 09, 2018 at 17:53 Initial Consult Date Type of Consult Pulmonary Reason for Consultation Patient's condition is significantly improved. Complains of very scant cough without any sputum production. Denies any wheezing or shortness of breath. General exam; middle-aged male, awake alert, currently in no distress. H EENT exam; supple neck, no JVD. No lymphadenopathy. Midline trachea. No thyromegaly. Patient has fair dentition. No neck masses. Chest exam; diminished but clear breath sounds. No added sounds. S1-S2 audible, no murmurs. Regular rhythm. Abdomen exam; soft, no organomegaly. Bowel sounds audible. Extremity exam; peripheral edema clubbing. [employer] exam; no focal deficit. Assessment and recommendations; 1. patient admitted for COPD exacerbation and acute bronchitis with significant interval improvement. Continue current supportive care. Steroid taper in 24 hours. Exam/Review of Systems Vital Signs Vitals Vital Signs Date Temp Pulse Resp B/P (MAP) Pulse Ox O2 O2 Flow FiO2 Time Delivery Rate 07/13/18 98.3 102 20 133/81 100 Nasal 2.0 11:39 (98) Cannula Intake and Output 07/12/18 07/12/18 07/13/18 1515:00 23:00 07:00 IntakeIntake Total 850 ml 800 ml BalanceBalance 850 ml 800 ml Medications Medications Current Medications IV Flush (NS 3 ml) 3 ml PER PROTOCOL IV ; Start 07/09/18 at 18:30 Ondansetron HCl (Zofran Inj) 4 mg Q6H PRN IV NAUSEA AND/OR VOMITING; Start 07/09/18 at 18:30 Acetaminophen (Tylenol Tab) 650 mg Q6H PRN PO PAIN LEVEL 1-3 OR FEVER Last administered on 07/09/18 22:53; Admin Dose 650 MG; Start 07/09/18 at 18:30 Pantoprazole (Protonix Tab) 40 mg DAILY@06 PO Last administered on 07/13/18 05:18; Admin Dose 40 MG; Start 07/10/18 at 06:00 Levofloxacin/ Dextrose 100 ml @ 100 mls/hr Q24H IVPB Last administered on 07/12/18 18:36; Admin Dose 100 MLS/HR; Start 07/09/18 at 19:30 Guaifenesin/ Dextromethorphan (Robitussin Dm Liquid Cup) 10 ml Q4H PRN PO COUGH Last administered on 07/11/18 16:20; Admin Dose 10 ML; Start 07/10/18 at 01:30 Levalbuterol (Xopenex Neb) 0.63 mg Q6H RESP THERAPY HHN Last administered on 07/13/18 07:38; Admin Dose 0.63 MG; Start 07/10/18 at 14:00 Tiotropium [place] (Spiriva) 1 inh DAILY INH Last administered on 07/13/18 09:15; Admin Dose 1 INH; Start 07/10/18 at 16:30 Fluticasone/ Vilanterol (Breo Ellipta 100-25 Mcg Inh) 1 inh DAILY INH Last administered on 07/13/18 09:15; Admin Dose 1 INH; Start 07/10/18 at 16:30 Levalbuterol (Xopenex Neb) 0.63 mg Q2H RESP THERAPY PRN HHN shortness of breath; Start 07/10/18 at 16:30 Nicotine (Nicoderm 21 Mg/ 24hr) 1 patch DAILY TRANSDERM Last administered on 07/13/18 09:15; Admin Dose 1 PATCH; Start 07/11/18 at 12:00 Arformoterol Tartrate (Brovana (Neb)) 2 ml BID RESP THERAPY NEB Last administered on 07/13/18at 07:38; Admin Dose 2 ML; Start 07/11/18 at 20:00 Ferric Sodium Gluconate Complex 125 mg/Sodium Chloride 100 ml @ 100 mls/hr DAILY@1300 IVPB Last administered on 07/12/18at 13:59; Admin Dose 100 MLS/HR; Start 07/12/18 at 13:00; Stop 07/14/18 at 13:59 Methylprednisolone Sodium Succinate (Solu-Medrol) 40 mg BID IV Last administered on 07/13/18at 09:14; Admin Dose 40 MG; Start 07/12/18 at 21:00 MICHAEL COONEY Jul 13, 2018 12:12
[2018-07-13] MEDS: SOD FERRIC GLUC COMPLX 125 MG in SOD CHLORIDE 0.9% 100 ML IVPB SCH (13:24)
[2018-07-13] MEDS: LEVOFLOXACIN 500MG/D5W (PMX) 100 ML IVPB SCH (18:34)
[2018-07-14] VITALS (11 sets, daily range): BP systolic 119–129; BP diastolic 60–68; PULSE 95–111; RESP 17–20
[2018-07-14] MEDS: LEVALBUTEROL (NEB) 0.63 MG/3 ML AMP HHN SCH ×4 (01:37→21:55)
[2018-07-14] MEDS: PANTOPRAZOLE (EC) 40 MG TAB PO SCH (05:24)
[2018-07-14] MEDS: ARFORMOTEROL TARTRATE 15MCG/2 ML AMP NEB SCH ×2 (07:58→21:55)
[2018-07-14] MEDS: FLUTICASONE/VILANTEROL 100-25 INH SCH (08:20)
[2018-07-14] MEDS: TIOTROPIUM 18 MCG CAPSULE INHA DEV INH SCH (08:21)
[2018-07-14] MEDS: NICOTINE (21 MG/24 HR) PATCH TRANSDERM SCH (08:23)
[2018-07-14] MEDS ORDERED: predniSONE 20 MG TAB PO SCH (09:00)
--- NOTE | 2018-07-14 11:20 | CONS ---
Date/Time of Note Date/Time of Note DATE: 07/14/18 TIME: 11:17 Consult Date/Type/Reason Admit Date/Time Jul 09, 2018 at 17:53 Initial Consult Date Type of Consultation: Pulm Subjective No events, breathing improving. Objective Vital Signs Date Temp Pulse Resp B/P (MAP) Pulse Ox O2 O2 Flow FiO2 Time Delivery Rate 07/14/18 2.0 08:02 07/14/18 99 08:01 07/14/18 22 93 Nasal 08:00 Cannula 07/14/18 98.6 126/68 07:39 (87) Intake and Output 07/13/18 07/13/18 07/14/18 1515:00 23:00 07:00 IntakeIntake Total 1700 ml 900 ml BalanceBalance 1700 ml 900 ml Exam GENERAL: Chronically ill-appearing lady, opens eyes to voice. No accessory muscle use. VITAL SIGNS: NECK: Supple. No JVD or lymphadenopathy. CARDIAC: S1, S2, no added sounds or murmurs. CHEST: Diminished air entry with diffuse bilateral expiratory wheezing. ABDOMEN: Soft, nontender. No guarding or rebound. EXTREMITIES: No cyanosis, clubbing or edema. NEUROLOGIC: Generalized weakness. Results/Medications Result Diagram: 07/13/18 0604 07/10/18 0543 Medications Current Medications IV Flush (NS 3 ml) 3 ml PER PROTOCOL IV ; Start 07/09/18 at 18:30 Ondansetron HCl (Zofran Inj) 4 mg Q6H PRN IV NAUSEA AND/OR VOMITING; Start 07/09/18 at 18:30 Acetaminophen (Tylenol Tab) 650 mg Q6H PRN PO PAIN LEVEL 1-3 OR FEVER Last administered on 07/09/18at 22:53; Admin Dose 650 MG; Start 07/09/18 at 18:30 Pantoprazole (Protonix Tab) 40 mg DAILY@06 PO Last administered on 07/14/18at 05:24; Admin Dose 40 MG; Start 07/10/18 at 06:00 Levofloxacin/ Dextrose 100 ml @ 100 mls/hr Q24H IVPB Last administered on 07/13/18at 18:34; Admin Dose 100 MLS/HR; Start 07/09/18 at 19:30 Guaifenesin/ Dextromethorphan (Robitussin Dm Liquid Cup) 10 ml Q4H PRN PO COUGH Last administered on 07/11/18 16:20; Admin Dose 10 ML; Start 07/10/18 at 01:30 Levalbuterol (Xopenex Neb) 0.63 mg Q6H RESP THERAPY HHN Last administered on 07/14/18 07:58; Admin Dose 0.63 MG; Start 07/10/18 at 14:00 Tiotropium [place] (Spiriva) 1 inh DAILY INH Last administered on 07/14/18 08:21; Admin Dose 1 INH; Start 07/10/18 at 16:30 Fluticasone/ Vilanterol (Breo Ellipta 100-25 Mcg Inh) 1 inh DAILY INH Last administered on 07/14/18 08:20; Admin Dose 1 INH; Start 07/10/18 at 16:30 Levalbuterol (Xopenex Neb) 0.63 mg Q2H RESP THERAPY PRN HHN shortness of breath; Start 07/10/18 at 16:30 Nicotine (Nicoderm 21 Mg/ 24hr) 1 patch DAILY TRANSDERM Last administered on 07/14/18 08:23; Admin Dose 1 PATCH; Start 07/11/18 at 12:00 Arformoterol Tartrate (Brovana (Neb)) 2 ml BID RESP THERAPY NEB Last administered on 07/14/18 07:58; Admin Dose 2 ML; Start 07/11/18 at 20:00 Ferric Sodium Gluconate Complex 125 mg/Sodium Chloride 100 ml @ 100 mls/hr DAILY@1300 IVPB Last administered on 07/13/18 13:24; Admin Dose 100 MLS/HR; Start 07/12/18 at 13:00; Stop 07/14/18 at 13:59 Prednisone (Prednisone) 40 mg DAILY PO Last administered on 07/14/18 08:21; Admin Dose 40 MG; Start 07/14/18 at 09:00 Assessment/Plan Chief Complaint/Hosp Course IMPRESSION: 1. Chronic obstructive pulmonary disease exacerbation with acute hypoxemic resp iratory failure. 2. Ongoing continued tobacco use. RECOMMENDATIONS: 1. IV steroids to PO 2. Bronchodilators. 3. Agree with antibiotics for possible tracheobronchitis. 4. Advice on smoking cessation. 5. Nicotine patch for nicotine withdrawal. dc planning ambulate without 02. YAN MENDEZ MD, [facility] Jul 14, 2018 11:20
[2018-07-14] MEDS: SOD FERRIC GLUC COMPLX 125 MG in SOD CHLORIDE 0.9% 100 ML IVPB SCH (13:38)
--- NOTE | 2018-07-14 17:48 | PN ---
Date/Time of Note Date/Time of Note DATE: 07/14/18 TIME: 17:48 Objective Vitals Vital Signs Date Temp Pulse Resp B/P (MAP) Pulse Ox O2 O2 Flow FiO2 Time Delivery Rate 07/14/18 106 16:01 07/14/18 97.7 18 128/60 94 15:28 (82) 07/14/18 Nasal 2.0 13:19 Cannula Intake and Output 07/13/18 07/13/18 07/14/18 1414:59 22:59 06:59 IntakeIntake Total 1700 ml 900 ml BalanceBalance 1700 ml 900 ml Results Result Diagram: 07/13/18 0604 07/10/18 0543 Medications Medications Current Medications IV Flush (NS 3 ml) 3 ml PER PROTOCOL IV ; Start 07/09/18 at 18:30 Ondansetron HCl (Zofran Inj) 4 mg Q6H PRN IV NAUSEA AND/OR VOMITING; Start 07/09/18 at 18:30 Acetaminophen (Tylenol Tab) 650 mg Q6H PRN PO PAIN LEVEL 1-3 OR FEVER Last administered on 07/09/18at 22:53; Admin Dose 650 MG; Start 07/09/18 at 18:30 Pantoprazole (Protonix Tab) 40 mg DAILY@06 PO Last administered on 07/14/18at 05:24; Admin Dose 40 MG; Start 07/10/18 at 06:00 Levofloxacin/ Dextrose 100 ml @ 100 mls/hr Q24H IVPB Last administered on 07/13/18at 18:34; Admin Dose 100 MLS/HR; Start 07/09/18 at 19:30 Guaifenesin/ Dextromethorphan (Robitussin Dm Liquid Cup) 10 ml Q4H PRN PO COUGH Last administered on 07/11/18at 16:20; Admin Dose 10 ML; Start 07/10/18 at 01:30 Levalbuterol (Xopenex Neb) 0.63 mg Q6H RESP THERAPY HHN Last administered on 07/14/18at 13:19; Admin Dose 0.63 MG; Start 07/10/18 at 14:00 Tiotropium [place] (Spiriva) 1 inh DAILY INH Last administered on 07/14/18at 08:21; Admin Dose 1 INH; Start 07/10/18 at 16:30 Fluticasone/ Vilanterol (Breo Ellipta 100-25 Mcg Inh) 1 inh DAILY INH Last administered on 07/14/18at 08:20; Admin Dose 1 INH; Start 07/10/18 at 16:30 Levalbuterol (Xopenex Neb) 0.63 mg Q2H RESP THERAPY PRN HHN shortness of breath; Start 07/10/18 at 16:30 Nicotine (Nicoderm 21 Mg/ 24hr) 1 patch DAILY TRANSDERM Last administered on 07/14/18at 08:23; Admin Dose 1 PATCH; Start 07/11/18 at 12:00 Arformoterol Tartrate (Brovana (Neb)) 2 ml BID RESP THERAPY NEB Last administered on 07/14/18at 07:58; Admin Dose 2 ML; Start 07/11/18 at 20:00 Prednisone (Prednisone) 30 mg DAILY PO ; Start 07/15/18 at 09:00; Status UNV VTE Prophylaxis Risk score (from Ns)>0 risk: 2 SCD applied (from [facility]): Yes Lines/Catheters IV Catheter Type: Mas in Place: No Assessment/Plan Hospital Course Subjective Patient feeling a little better than yesterday Objective Physical exam General: Patient is laying in bed and answers questions appropriately Mentation: Patient is alert and oriented 4, Head: Normocephalic atraumatic Eyes: EOMI, pupils reactive to light Neck: Supple, nontender, midline Respiratory: Wheezing to auscultation bilaterally Cardiovascular: regular rate, no obvious murmurs Gastrointestinal: non-tender to palpation, bowel sounds heard. Neurological: Moves all extremities spontaneously Skin: No new skin lesions Assessment/Plan 1. Acute shortness of breath secondary to COPD - Improving and will transition to PO steroids tomorrow - Pulmonology on board and appreciate recommendations. - CT scan shows emphysematous changes - Nebs PRN - Wean O2 as tolerated 2. tobacco abuse - refusing nicotine patch 3. anemia - denies any GI bleeding 4. Homelessness - SW consultation appreciated 5. UTI - will continue current antibiotics 6. Disposition -taper steroids, assess for o2 sat without MALVIN ROSALES Jul 14, 2018 17:48
[2018-07-14] MEDS: LEVOFLOXACIN 500MG/D5W (PMX) 100 ML IVPB SCH (20:03)
[2018-07-15] VITALS (12 sets, daily range): BP systolic 113–130; BP diastolic 58–70; PULSE 92–112; RESP 17–20
[2018-07-15] MEDS: LEVALBUTEROL (NEB) 0.63 MG/3 ML AMP HHN SCH ×4 (02:00→19:27)
[2018-07-15] MEDS: PANTOPRAZOLE (EC) 40 MG TAB PO SCH (06:50)
[2018-07-15] MEDS: ARFORMOTEROL TARTRATE 15MCG/2 ML AMP NEB SCH ×3 (07:53→20:41)
[2018-07-15] MEDS ORDERED: predniSONE 20 MG TAB PO SCH (09:00)
[2018-07-15] MEDS: FLUTICASONE/VILANTEROL 100-25 INH SCH (09:17)
[2018-07-15] MEDS: NICOTINE (21 MG/24 HR) PATCH TRANSDERM SCH (09:20)
[2018-07-15] MEDS ORDERED: IPRATROPIUM (NEB) 0.5 MG/2.5 ML AMP HHN PRN (10:00)
--- NOTE | 2018-07-15 11:38 | CONS ---
Date/Time of Note Date/Time of Note DATE: 07/15/18 TIME: 11:31 Consult Date/Type/Reason Admit Date/Time Jul 09, 2018 at 17:53 Initial Consult Date Type of Consultation: Pulm Subjective No events Breathing slowly improving. Objective Vital Signs Date Temp Pulse Resp B/P (MAP) Pulse Ox O2 O2 Flow FiO2 Time Delivery Rate 07/15/18 98.3 97 17 113/58 93 11:29 (76) 07/15/18 1.0 08:09 07/15/18 Nasal 08:04 Cannula 07/15/18 21 07:54 Intake and Output 07/14/18 07/14/18 07/15/18 1515:00 23:00 07:00 IntakeIntake Total 100 ml 1200 ml 1200 ml BalanceBalance 100 ml 1200 ml 1200 ml Exam GENERAL: Chronically ill-appearing lady, opens eyes to voice. No accessory muscle use. VITAL SIGNS: NECK: Supple. No JVD or lymphadenopathy. CARDIAC: S1, S2, no added sounds or murmurs. CHEST: Diminished air entry with diffuse bilateral expiratory wheezing. ABDOMEN: Soft, nontender. No guarding or rebound. EXTREMITIES: No cyanosis, clubbing or edema. NEUROLOGIC: Generalized weakness. Results/Medications Result Diagram: 07/15/18 0633 07/15/18 0633 Results 24 hrs Laboratory Tests Test 07/15/18 06:33 07/15/18 09:15 White Blood Count 13.1 #H Red Blood Count 4.06 L Hemoglobin 8.8 L Hematocrit 30.4 L Mean Corpuscular Volume 74.9 L Mean Corpuscular Hemoglobin 21.7 L Mean Corpuscular Hemoglobin Concent 28.9 L Red Cell Distribution Width 20.5 H Platelet Count 189 Mean Platelet Volume 10.4 Immature Granulocytes % 11.500 H Neutrophils % Segmented Neutrophils % (Manual) 47 Band Neutrophils % (Manual) 6 H Lymphocytes % Lymphocytes % (Manual) 34 Reactive Lymphocytes % (Manual) 1 H Monocytes % Monocytes % (Manual) 5 Eosinophils % Eosinophils % (Manual) 2 Basophils % Metamyelocytes % (manual) 1 H Myelocytes % (Manual) 4 H Nucleated Red Blood Cells % 4 H Immature Granulocytes # 1.500 H Neutrophils # Neutrophils # (Manual) 6.2 Band Neutrophils # 0.7 H Lymphocytes (Manual) 4.4 H Lymphocytes # Reactive Lymphocytes # 0.1 H Monocytes # Monocytes # (Manual) 0.6 Eosinophils # Basophils # Metamyelocytes # 0.1 H Myelocytes # 0.5 H Nucleated Red Blood Cells # Platelet Estimate NORMAL Giant Platelets 1 H Poikilocytosis 1+ Anisocytosis 1+ Ovalocytes 1+ Sodium Level 140 Potassium Level 4.0 Chloride Level 107 Carbon Dioxide Level 29 Anion Gap 4 L Blood Urea Nitrogen 25 H Creatinine 0.50 Est Glomerular Filtrat Rate mL/min > 60 Glucose Level 94 Calcium Level 8.0 L Phosphorus Level 4.8 Magnesium Level 1.9 Lab Scanned Report REFERENCE LAB Medications Current Medications IV Flush (NS 3 ml) 3 ml PER PROTOCOL IV ; Start 07/09/18 at 18:30 Ondansetron HCl (Zofran Inj) 4 mg Q6H PRN IV NAUSEA AND/OR VOMITING; Start 07/09/18 at 18:30 Acetaminophen (Tylenol Tab) 650 mg Q6H PRN PO PAIN LEVEL 1-3 OR FEVER Last administered on 07/09/18at 22:53; Admin Dose 650 MG; Start 07/09/18 at 18:30 Pantoprazole (Protonix Tab) 40 mg DAILY@06 PO Last administered on 07/15/18at 06:50; Admin Dose 40 MG; Start 07/10/18 at 06:00 Levofloxacin/ Dextrose 100 ml @ 100 mls/hr Q24H IVPB Last administered on 07/14/18at 20:03; Admin Dose 100 MLS/HR; Start 07/09/18 at 19:30 Guaifenesin/ Dextromethorphan (Robitussin Dm Liquid Cup) 10 ml Q4H PRN PO COUGH Last administered on 07/11/18at 16:20; Admin Dose 10 ML; Start 07/10/18 at 01:30 Levalbuterol (Xopenex Neb) 0.63 mg Q6H RESP THERAPY HHN Last administered on 07/15/18 07:52; Admin Dose 0.63 MG; Start 07/10/18 at 14:00 Levalbuterol (Xopenex Neb) 0.63 mg Q2H RESP THERAPY PRN HHN shortness of breath; Start 07/10/18 at 16:30 Nicotine (Nicoderm 21 Mg/ 24hr) 1 patch DAILY TRANSDERM Last administered on 07/15/18 09:20; Admin Dose 1 PATCH; Start 07/11/18 at 12:00 Arformoterol Tartrate (Brovana (Neb)) 2 ml BID RESP THERAPY NEB Last administered on 07/14/18at 21:55; Admin Dose 2 ML; Start 07/11/18 at 20:00 Budesonide (Pulmicort (Neb)) 0.5 mg BID RESP THERAPY HHN ; Start 07/15/18 at 10:00 Ipratropium [place] (Atrovent 0.02% (Neb)) 0.5 mg Q6HWA RESP THERAPY HHN ; Start 07/15/18 at 14:00 Ipratropium [place] (Atrovent 0.02% (Neb)) 0.5 mg Q6H RESP THERAPY PRN HHN shortness of breath; Start 07/15/18 at 10:00 Methylprednisolone Sodium Succinate (Solu-Medrol) 40 mg Q12 IV ; Start 07/15/18 at 21:00 Assessment/Plan Chief Complaint/Hosp Course IMPRESSION: 1. Chronic obstructive pulmonary disease exacerbation with acute hypoxemic respiratory failure. 2. Ongoing continued tobacco use. RECOMMENDATIONS: 1. IV steroids to PO 2. Bronchodilators. 3. Agree with antibiotics for possible tracheobronchitis. 4. Advice on smoking cessation. 5. Nicotine patch for nicotine withdrawal. dc planning ambulate without 02. Transfer to med surg Y[facility]ENDEZ [facility], [facility] Jul 15, 2018 11:38
[2018-07-15] MEDS: BUDESONIDE (NEB) 0.5MG/2ML AMP HHN SCH ×3 (12:10→20:41)
--- NOTE | 2018-07-15 13:54 | PN ---
Date/Time of Note Date/Time of Note DATE: 07/15/18 TIME: 13:52 Objective Vitals Vital Signs Date Temp Pulse Resp B/P (MAP) Pulse Ox O2 O2 Flow FiO2 Time Delivery Rate 07/15/18 2.0 28 12:14 07/15/18 107 20 92 Nasal 12:13 Cannula 07/15/18 98.3 113/58 11:29 (76) Intake and Output 07/14/18 07/14/18 07/15/18 1515:00 23:00 07:00 IntakeIntake Total 100 ml 1200 ml 1200 ml BalanceBalance 100 ml 1200 ml 1200 ml Results Result Diagram: 07/15/1833 07/15/18632 Medications Medications Current Medications IV Flush (NS 3 ml) 3 ml PER PROTOCOL IV ; Start 07/09/18 at 18:30 Ondansetron HCl (Zofran Inj) 4 mg Q6H PRN IV NAUSEA AND/OR VOMITING; Start 07/09/18 at 18:30 Acetaminophen (Tylenol Tab) 650 mg Q6H PRN PO PAIN LEVEL 1-3 OR FEVER Last administered on 07/09/18at 22:53; Admin Dose 650 MG; Start 07/09/18 at 18:30 Pantoprazole (Protonix Tab) 40 mg DAILY@06 PO Last administered on 07/15/18at 06 :50; Admin Dose 40 MG; Start 07/10/18 at 06:00 Levofloxacin/ Dextrose 100 ml @ 100 mls/hr Q24H IVPB Last administered on 07/14/18at 20:03; Admin Dose 100 MLS/HR; Start 07/09/18 at 19:30 Guaifenesin/ Dextromethorphan (Robitussin Dm Liquid Cup) 10 ml Q4H PRN PO COUGH Last administered on 07/11/18at 16:20; Admin Dose 10 ML; Start 07/10/18 at 01:30 Levalbuterol (Xopenex Neb) 0.63 mg Q6H RESP THERAPY HHN Last administered on 07/15/18at 07:52; Admin Dose 0.63 MG; Start 07/10/18 at 14:00 Levalbuterol (Xopenex Neb) 0.63 mg Q2H RESP THERAPY PRN HHN shortness of breath; Start 07/10/18 at 16:30 Nicotine (Nicoderm 21 Mg/ 24hr) 1 patch DAILY TRANSDERM Last administered on 07/15/18at 09:20; Admin Dose 1 PATCH; Start 07/11/18 at 12:00 Arformoterol Tartrate (Brovana (Neb)) 2 ml BID RESP THERAPY NEB Last administered on 07/14/18at 21:55; Admin Dose 2 ML; Start 07/11/18 at 20:00 Budesonide (Pulmicort (Neb)) 0.5 mg BID RESP THERAPY HHN Last administered on 07/15/18at 12:10; Admin Dose 0.5 MG; Start 07/15/18 at 10:00 Ipratropium [place] (Atrovent 0.02% (Neb)) 0.5 mg Q6HWA RESP THERAPY HHN ; Start 07/15/18 at 14:00 Ipratropium [place] (Atrovent 0.02% (Neb)) 0.5 mg Q6H RESP THERAPY PRN HHN shortness of breath; Start 07/15/18 at 10:00 Methylprednisolone Sodium Succinate (Solu-Medrol) 40 mg Q12 IV ; Start 07/15/18 at 21:00 VTE Prophylaxis Risk score (from Nsg)>0 risk: 2 SCD applied (from Ns): Yes Lines/Catheters IV Catheter Type: Mas in Place: No Assessment/Plan Hospital Course Subjective Patient feeling a little better than yesterday Objective Physical exam General: Patient is laying in bed and answers questions appropriately Mentation: Patient is alert and oriented 4, Head: Normocephalic atraumatic Eyes: EOMI, pupils reactive to light Neck: Supple, nontender, midline Respiratory: Wheezing to auscultation bilaterally Cardiovascular: regular rate, no obvious murmurs Gastrointestinal: non-tender to palpation, bowel sounds heard. Neurological: Moves all extremities spontaneously Skin: No new skin lesions Assessment/Plan 1. Acute shortness of breath secondary to COPD - appears to not have resolved as much as thought, put patient back on IV steroids and more nebulizers - Pulmonology on board and appreciate recommendations. - CT scan shows emphysematous changes - Nebs PRN - Wean O2 as tolerated 2. tobacco abuse - refusing nicotine patch 3. anemia - denies any GI bleeding 4. Homelessness - SW consultation appreciated 5. UTI - will continue current antibiotics 6. Disposition -monitor o2 level while ambulating -homeless, so can not give home O2, will need to DC when patient is ambulating with fiO2 greater than 92% MALVIN CLINTON Jul 15, 2018 13:54
[2018-07-15] MEDS: IPRATROPIUM (NEB) 0.5 MG/2.5 ML AMP HHN SCH ×2 (13:59→19:27)
[2018-07-15] MEDS: METHYLPREDNISOLONE 40 MG INJ IV SCH (21:32)
[2018-07-15] MEDS: LEVOFLOXACIN 500MG/D5W (PMX) 100 ML IVPB SCH (21:33)
[2018-07-16] VITALS (12 sets, daily range): BP systolic 109–128; BP diastolic 64–74; PULSE 76–117; RESP 16–20
[2018-07-16] MEDS: LEVALBUTEROL (NEB) 0.63 MG/3 ML AMP HHN SCH ×2 (02:50→07:57)
[2018-07-16] MEDS: PANTOPRAZOLE (EC) 40 MG TAB PO SCH (05:23)
[2018-07-16] MEDS: IPRATROPIUM (NEB) 0.5 MG/2.5 ML AMP HHN SCH ×2 (07:56→12:55)
[2018-07-16] MEDS: NICOTINE (21 MG/24 HR) PATCH TRANSDERM SCH (09:00)
[2018-07-16] MEDS: METHYLPREDNISOLONE 40 MG INJ IV SCH (09:02)
--- NOTE | 2018-07-16 12:42 | CONS ---
Date/Time of Note Date/Time of Note DATE: 07/16/18 TIME: 12:40 Consult Date/Type/Reason Admit Date/Time Jul 09, 2018 at 17:53 Initial Consult Date Type of Consultation: Pulm Subjective Tachycardic this morning denies shortness of breath, chest pain Objective Vital Signs Date Temp Pulse Resp B/P (MAP) Pulse Ox O2 O2 Flow FiO2 Time Delivery Rate 07/16/18 98.5 76 17 110/69 97 11:27 (83) 07/16/18 Nasal 2.0 07:58 Cannula 07/15/18 28 14:00 Intake and Output 07/15/18 07/15/18 07/16/18 1515:00 23:00 07:00 IntakeIntake Total 1200 ml 800 ml BalanceBalance 1200 ml 800 ml Exam GENERAL: Chronically ill-appearing lady, opens eyes to voice. No accessory muscle use. VITAL SIGNS: NECK: Supple. No JVD or lymphadenopathy. CARDIAC: S1, S2, no added sounds or murmurs. Tachy CHEST: Diminished air entry with diffuse bilateral expiratory wheezing. ABDOMEN: Soft, nontender. No guarding or rebound. EXTREMITIES: No cyanosis, clubbing or edema. NEUROLOGIC: Generalized weakness. Results/Medications Result Diagram: 07/16/18 0655 07/16/18 0527 Results 24 hrs Laboratory Tests Test 07/16/18 05:27 07/16/18 06:55 Sodium Level 141 Potassium Level 5.2 H Chloride Level 106 Carbon Dioxide Level 26 Anion Gap 9 # Blood Urea Nitrogen 21 H Creatinine 0.34 L Est Glomerular Filtrat Rate mL/min > 60 Glucose Level 146 # Calcium Level 8.4 Phosphorus Level 5.1 H Magnesium Level 2.0 White Blood Count 14.6 H Red Blood Count 4.12 L Hemoglobin 9.1 L Hematocrit 31.3 L Mean Corpuscular Volume 76.0 L Mean Corpuscular Hemoglobin 22.1 L Mean Corpuscular Hemoglobin Concent 29.1 L Red Cell Distribution Width 21.5 H Platelet Count 191 Mean Platelet Volume 10.0 Immature Granulocytes % 8.200 H Neutrophils % Segmented Neutrophils % (Manual) 84 H Band Neutrophils % (Manual) 6 H Lymphocytes % Lymphocytes % (Manual) 2 L Monocytes % Monocytes % (Manual) 2 Eosinophils % Eosinophils % (Manual) 1 Basophils % Basophils % (Manual) 1 Metamyelocytes % (manual) 1 H Myelocytes % (Manual) 3 H Nucleated Red Blood Cells % 0.3 H Immature Granulocytes # 1.200 H Neutrophils # Neutrophils # (Manual) 12.4 H Band Neutrophils # 0.8 H Lymphocytes (Manual) 0.2 L Lymphocytes # Monocytes # Monocytes # (Manual) 0.2 L Eosinophils # Basophils # Basophils # (Manual) 0.1 H Metamyelocytes # 0.1 H Myelocytes # 0.4 H Nucleated Red Blood Cells # Platelet Estimate NORMAL Polychromasia 2+ Hypochromasia 2+ Poikilocytosis 2+ Anisocytosis 1+ Microcytosis 1+ Ovalocytes 2+ Medications Current Medications IV Flush (NS 3 ml) 3 ml PER PROTOCOL IV ; Start 07/09/18 at 18:30 Ondansetron HCl (Zofran Inj) 4 mg Q6H PRN IV NAUSEA AND/OR VOMITING; Start 07/09/18 at 18:30 Acetaminophen (Tylenol Tab) 650 mg Q6H PRN PO PAIN LEVEL 1-3 OR FEVER Last administered on 07/09/18at 22:53; Admin Dose 650 MG; Start 07/09/18 at 18:30 Pantoprazole (Protonix Tab) 40 mg DAILY@06 PO Last administered on 07/16/18at 05:23; Admin Dose 40 MG; Start 07/10/18 at 06:00 Levofloxacin/ Dextrose 100 ml @ 100 mls/hr Q24H IVPB Last administered on at 21:33; Admin Dose 100 MLS/HR; Start 07/09/18 at 19:30 Guaifenesin/ Dextromethorphan (Robitussin Dm Liquid Cup) 10 ml Q4H PRN PO COUGH Last administered on 07/11/18at 16:20; Admin Dose 10 ML; Start 07/10/18 at 01:30 Levalbuterol (Xopenex Neb) 0.63 mg Q6H RESP THERAPY HHN Last administered on 07/16/18 07:57; Admin Dose 0.63 MG; Start 07/10/18 at 14:00 Levalbuterol (Xopenex Neb) 0.63 mg Q2H RESP THERAPY PRN HHN shortness of breath; Start 07/10/18 at 16:30 Nicotine (Nicoderm 21 Mg/ 24hr) 1 patch DAILY TRANSDERM Last administered on 1/16/19at 09:00; Admin Dose 1 PATCH; Start 07/11/18 at 12:00 Budesonide (Pulmicort (Neb)) 0.5 mg BID RESP THERAPY HHN Last administered on 07/15/18at 20:41; Admin Dose 0.5 MG; Start 07/15/18 at 10:00 Ipratropium [place] (Atrovent 0.02% (Neb)) 0.5 mg Q6HWA RESP THERAPY HHN Last administered on 07/16/18at 07:56; Admin Dose 0.5 MG; Start 07/15/18 at 14:00 Ipratropium [place] (Atrovent 0.02% (Neb)) 0.5 mg Q6H RESP THERAPY PRN HHN shortness of breath; Start 07/15/18 at 10:00 Methylprednisolone Sodium Succinate (Solu-Medrol) 40 mg Q12 IV Last admini stered on 07/16/18at 09:02; Admin Dose 40 MG; Start 07/15/18 at 21:00 Assessment/Plan Chief Complaint/Hosp Course IMPRESSION: 1. Chronic obstructive pulmonary disease exacerbation with acute hypoxemic respiratory failure. 2. Ongoing continued tobacco use. 3. tachycardia likely exacerbated by albuterol. RECOMMENDATIONS: 1. IV steroids to PO 2. dc albuterol 3. Agree with antibiotics for possible tracheobronchitis. 4. Advice on smoking cessation. 5. Nicotine patch for nicotine withdrawal. YAN MENDEZ MD, [facility] Jul 16, 2018 12:42
--- NOTE | 2018-07-16 16:28 | PN ---
Date/Time of Note Date/Time of Note DATE: 07/16/18 TIME: 16:27 Objective Vitals Vital Signs Date Temp Pulse Resp B/P (MAP) Pulse Ox O2 O2 Flow FiO2 Time Delivery Rate 07/16/18 98.3 117 19 122/64 95 15:21 (83) 07/16/18 Nasal 2.0 12:56 Cannula 07/15/18 28 14:00 Intake and Output 07/15/18 07/15/18 07/16/18 1515:00 23:00 07:00 IntakeIntake Total 1200 ml 800 ml BalanceBalance 1200 ml 800 ml Results Result Diagram: 07/16/18 0655 07/16/18 1144 Medications Medications Current Medications IV Flush (NS 3 ml) 3 ml PER PROTOCOL IV ; Start 07/09/18 at 18:30 Ondansetron HCl (Zofran Inj) 4 mg Q6H PRN IV NAUSEA AND/OR VOMITING; Start 07/09/18 at 18:30 Acetaminophen (Tylenol Tab) 650 mg Q6H PRN PO PAIN LEVEL 1-3 OR FEVER Last administered on 07/09/18at 22:53; Admin Dose 650 MG; Start 07/09/18 at 18:30 Pantoprazole (Protonix Tab) 40 mg DAILY@06 PO Last administered on 07/16/18at 05:23; Admin Dose 40 MG; Start 07/10/18 at 06:00 Levofloxacin/ Dextrose 100 ml @ 100 mls/hr Q24H IVPB Last administered on 07/15/18at 21:33; Admin Dose 100 MLS/HR; Start 07/09/18 at 19:30 Guaifenesin/ Dextromethorphan (Robitussin Dm Liquid Cup) 10 ml Q4H PRN PO COUGH Last administered on 07/11/18 16:20; Admin Dose 10 ML; Start 07/10/18 at 01:30 Nicotine (Nicoderm 21 Mg/ 24hr) 1 patch DAILY TRANSDERM Last administered on 07/16/18at 09:00; Admin Dose 1 PATCH; Start 07/11/18 at 12:00 Budesonide (Pulmicort (Neb)) 0.5 mg BID RESP THERAPY HHN Last administered on 07/15/18 20:41; Admin Dose 0.5 MG; Start 07/15/18 at 10:00 Ipratropium [place] (Atrovent 0.02% (Neb)) 0.5 mg Q6HWA RESP THERAPY HHN Last administered on 07/16/18at 12:55; Admin Dose 0.5 MG; Start 07/15/18 at 14:00 Ipratropium [place] (Atrovent 0.02% (Neb)) 0.5 mg Q6H RESP THERAPY PRN HHN shortness of breath; Start 07/15/18 at 10:00 Methylprednisolone Sodium Succinate (Solu-Medrol) 40 mg DAILY IV ; Start 07/17/18 at 09:00 Sodium Chloride 1,000 ml @ 75 mls/hr [id number] IV ; Start 07/16/18 at 16:30; Status UNV VTE Prophylaxis Risk score (from [facility])>0 risk: 2 SCD applied (from [facility]): Yes Lines/Catheters IV Catheter Type: Mas in Place: No Assessment/Plan Hospital Course Subjective Patient feeling a little better than yesterday Objective Physical exam General: Patient is laying in bed and answers questions appropriately Mentation: Patient is alert and oriented 4, Head: Normocephalic atraumatic Eyes: EOMI, pupils reactive to light Neck: Supple, nontender, midline Respiratory: Wheezing to auscultation bilaterally Cardiovascular: regular rate, no obvious murmurs Gastrointestinal: non-tender to palpation, bowel sounds heard. Neurological: Moves all extremities spontaneously Skin: No new skin lesions Assessment/Plan 1. Acute shortness of breath secondary to COPD - improved - Pulmonology on board and appreciate recommendations. - CT scan shows emphysematous changes - Nebs PRN - Wean O2 as tolerated 2. tobacco abuse - refusing nicotine patch 3. anemia - denies any GI bleeding 4. Homelessness - consultation appreciated 5. UTI - will continue current antibiotics 6. Disposition -monitor o2 level while ambulating -homeless, so can not give home O2, doing well, transitioning to PO steroids MALVIN CLINTON Jul 16, 2018 16:28
[2018-07-16] MEDS: SOD CHLORIDE 0.9% 1,000 ML IV SCH (17:18)
[2018-07-16] MEDS: FLUTICASONE/VILANTEROL 100-25 INH SCH (18:07)
[2018-07-16] MEDS: TIOTROPIUM 18 MCG CAPSULE INHA DEV INH SCH (18:44)
[2018-07-16] MEDS: LEVOFLOXACIN 500MG/D5W (PMX) 100 ML IVPB SCH (19:48)
[2018-07-17] VITALS (8 sets, daily range): BP systolic 108–140; BP diastolic 63–70; PULSE 97–114; RESP 17–19
[2018-07-17] MEDS: SOD CHLORIDE 0.9% 1,000 ML IV SCH (06:07)
[2018-07-17] MEDS: PANTOPRAZOLE (EC) 40 MG TAB PO SCH (06:07)
[2018-07-17] MEDS ORDERED: predniSONE 20 MG TAB PO SCH (09:00)
[2018-07-17] MEDS ORDERED: METHYLPREDNISOLONE 40 MG INJ IV SCH (09:00)
[2018-07-17] MEDS: NICOTINE (21 MG/24 HR) PATCH TRANSDERM SCH (09:00)
[2018-07-17] MEDS: TIOTROPIUM 18 MCG CAPSULE INHA DEV INH SCH (09:25)
[2018-07-17] MEDS: FLUTICASONE/VILANTEROL 100-25 INH SCH (09:26)
--- NOTE | 2018-07-17 10:37 | CONS ---
Date/Time of Note Date/Time of Note DATE: 07/17/18 TIME: 10:36 Consult Date/Type/Reason Admit Date/Time Jul 09, 2018 at 17:53 Initial Consult Date Type of Consultation: Pulm Subjective HR decreased Objective Vital Signs Date Temp Pulse Resp B/P (MAP) Pulse Ox O2 O2 Flow FiO2 Time Delivery Rate 07/17/18 105 08:40 07/17/18 98.4 18 128/68 93 07:18 (88) 07/17/18 Nasal 03:36 Cannula 07/17/18 2.0 02:31 07/15/18 28 14:00 Intake and Output 07/16/18 07/16/18 07/17/18 1515:00 23:00 07:00 IntakeIntake Total 880 ml 1100 ml BalanceBalance 880 ml 1100 ml Exam GENERAL: Chronically ill-appearing lady, comfortable at rest. VITAL SIGNS: NECK: Supple. No JVD or lymphadenopathy. CARDIAC: S1, S2, no added sounds or murmurs. Tachy CHEST: Diminished air entry with diffuse bilateral expiratory wheezing. ABDOMEN: Soft, nontender. No guarding or rebound. EXTREMITIES: No cyanosis, clubbing or edema. NEUROLOGIC: Generalized weakness. Results/Medications Result Diagram: 07/17/18 0551 07/17/18 0551 Results 24 hrs Laboratory Tests Test 07/16/18 11:44 07/17/18 05:51 Potassium Level 4.3 3.7 White Blood Count 14.4 H Red Blood Count 3.92 L Hemoglobin 8.8 L Hematocrit 30.3 L Mean Corpuscular Volume 77.3 L Mean Corpuscular Hemoglobin 22.4 L Mean Corpuscular Hemoglobin Concent 29.0 L Red Cell Distribution Width 22.7 H Platelet Count 181 Mean Platelet Volume 9.8 Immature Granulocytes % 5.600 H Neutrophils % Segmented Neutrophils % (Manual) 74 Band Neutrophils % (Manual) 5 H Lymphocytes % Lymphocytes % (Manual) 14 L Monocytes % Monocytes % (Manual) 4 Eosinophils % Eosinophils % (Manual) 1 Basophils % Myelocytes % (Manual) 2 H Nucleated Red Blood Cells % 0.1 H Immature Granulocytes # 0.810 H Neutrophils # Neutrophils # (Manual) 10.8 H Band Neutrophils # 0.7 H Lymphocytes (Manual) 2.0 Lymphocytes # Monocytes # Monocytes # (Manual) 0.5 Eosinophils # Basophils # Myelocytes # 0.2 H Nucleated Red Blood Cells # Platelet Estimate NORMAL Polychromasia 1+ Hypochromasia 2+ Poikilocytosis 2+ Anisocytosis 1+ Microcytosis 1+ Ovalocytes 1+ Sodium Level 139 Chloride Level 107 Carbon Dioxide Level 27 Anion Gap 5 Blood Urea Nitrogen 23 H Creatinine 0.50 Est Glomerular Filtrat Rate mL/min > 60 Glucose Level 100 # Calcium Level 8.2 L Phosphorus Level 4.4 Magnesium Level 1.9 Medications Current Medications IV Flush (NS 3 ml) 3 ml PER PROTOCOL IV ; Start 07/09/18 at 18:30 Ondansetron HCl (Zofran Inj) 4 mg Q6H PRN IV NAUSEA AND/OR VOMITING; Start 07/09/18 at 18:30 Acetaminophen (Tylenol Tab) 650 mg Q6H PRN PO PAIN LEVEL 1-3 OR FEVER Last administered on 07/09/18at 22:53; Admin Dose 650 MG; Start 07/09/18 at 18:30 Pantoprazole (Protonix Tab) 40 mg DAILY@06 PO Last administered on 07/17/18at 06:07; Admin Dose 40 MG; Start 07/10/18 at 06:00 Levofloxacin/ Dextrose 100 ml @ 100 mls/hr Q24H IVPB Last administered on 07/16/18at 19:48; Admin Dose 100 MLS/HR; Start 07/09/18 at 19:30 Guaifenesin/ Dextromethorphan (Robitussin Dm Liquid Cup) 10 ml Q4H PRN PO COUGH Last administered on 07/11/18at 16:20; Admin Dose 10 ML; Start 07/10/18 at 01:30 Nicotine (Nicoderm 21 Mg/ 24hr) 1 patch DAILY TRANSDERM Last administered on 07/16/18at 09:00; Admin Dose 1 PATCH; Start 07/11/18 at 12:00 Ipratropium [place] (Atrovent 0.02% (Neb)) 0.5 mg Q6H RESP THERAPY PRN HHN shortness of breath; Start 07/15/18 at 10:00 Sodium Chloride 1,000 ml @ 75 mls/hr [id number] IV Last administered on 07/17/18at 06:07; Admin Dose 75 MLS/HR; Start 07/16/18 at 16:30 Fluticasone/ Vilanterol (Breo Ellipta 100-25 Mcg Inh) 1 inh DAILY INH Last administered on 07/17/18at 09:26; Admin Dose 1 INH; Start 07/16/18 at 18:00 Tiotropium [place] (Spiriva) 1 inh DAILY INH Last administered on 07/17/18at 09: 25; Admin Dose 1 INH; Start 07/16/18 at 18:00 Prednisone (Prednisone) 40 mg DAILY PO Last administered on 07/17/18at 09:23; Admin Dose 40 MG; Start 07/17/18 at 09:00 Assessment/Plan Chief Complaint/Hosp Course IMPRESSION: 1. Chronic obstructive pulmonary disease exacerbation with acute hypoxemic respiratory failure. 2. Ongoing continued tobacco use. 3. tachycardia likely exacerbated by albuterol. RECOMMENDATIONS: 1. IV steroids to PO 2. dc albuterol 3. Agree with antibiotics for possible tracheobronchitis. 4. Advice on smoking cessation. 5. Nicotine patch for nicotine withdrawal. dc planning. YAN MENDEZ MD, [facility] Jul 17, 2018 10:37
[2018-07-17] MEDS ORDERED: TIOT18CA INH (11:27)
[2018-07-17] MEDS ORDERED: FLUT1AER INH (11:27)
[2018-07-17] MEDS ORDERED: MED4DP PO (11:27)
--- NOTE | 2018-07-17 11:28 | PDOCDIS ---
Discharge Instructions CONDITION [id number] Patient Condition: [id number] Stable ACTIVITY: [id number] Activity Restrictions: [id number] Slowly Increase Activity FOLLOW UP/APPOINTMENTS Follow-up Plan 1. Please follow-up with your primary care provider as soon as possible in order to monitor your lung status and bronchitis. 2. Please stop using narcotics such as meth. MALVIN CLINTON Jul 17, 2018 11:28
--- NOTE | 2018-07-17 11:36 | DS ---
Date/Time of Note Date/Time of Note DATE: 07/17/18 TIME: 11:35 Discharge Summary Admission/Discharge Info Admit Date/Time Jul 09, 2018 at 17:53 Discharge Date/Time Patient Condition: Stable Hospital Course Patient is a female with past medical history significant for methamphetamine use and tobacco abuse who presents to [facility] for shortness of breath. Patient was diagnosed with acute hypoxic respiratory distress secondary to COPD exacerbation as well as a tracheobronchitis. Patient was continued on antibiotics for the entire stay and has completed an entire course of abx, as well as breathing treatments and steroids. Patient had a slow resolution of her symptoms likely due to her multiple years of methamphetamine use and smoking abuse. Patient's medical history is also complicated by the fact that she is homeless. CT of the chest showed mild emphysema and some airway wall thickening suggested for airway inflammation without airway occlusion. It also found hepatic cirrhosis with varices. At this time patient respiration status improved significantly, patient did have episodes of tachycardia that were asymptomatic, patient was offered an echocardiogram but did not want to stay and stated that she will follow-up with her outpatient physician in order to follow-up for her tachycardia. Patient will be given a prescription for inhalers as well as a short course of oral steroids. It was explicitly states the patient to follow-up with her primary care physician in order to follow-up with her respiratory disease as well as her hepatic cirrhosis. Patient was also found to be iron deficient and given IV iron during the stay and suggested to continue oral iron [id number]. Discharge diagnosis Acute hypoxic respiratory distress COPD exacerbation Tracheobronchitis Tobacco abuse Methamphetamine use Anemia Homelessness UTI Home Meds Active Scripts Methylprednisolone* (Medrol* DOSE PACK) 4 Mg/Dose-Pack Tab.ds.pk, 4 MG PO . DIRECTED, #1 PACKET Prov:MALVIN CLINTON 07/17/18 Fluticasone-Vilanterol (Breo Ellipta Inhaler) 100-25 Mcg/Actuation Aer.pow.ba, 1 INH INH DAILY for 30 Days, #1 INHALER 2 Refills Prov:MALVIN CLINTON 07/17/18 Tiotropium [place]* (Spiriva*) 18 Mcg Cap.w.dev, 1 INH INH DAILY for 30 Days, #1 INHALER 2 Refills Prov:MALVIN CLINTON 07/17/18 Follow-up Plan 1. Please follow-up with your primary care provider as soon as possible in order to monitor your lung status and bronchitis. 2. Please stop using narcotics such as meth. Primary Care Provider Care Physician No Primary Time spent on discharge: > 30 minutes Pending Labs Laboratory Tests Test 07/16/18 11:44 07/17/18 05:51 Potassium Level 4.3 mmol/L (3.5-5.1) 3.7 mmol/L (3.5-5.1) White Blood Count 14.4 10^3/ul (4.8-10.8) Red Blood Count 3.92 10^6/ul (4.20-5.40) Hemoglobin 8.8 g/dl (12.0-16.0) Hematocrit 30.3 % (37.0-47.0) Mean Corpuscular Volume 77.3 fl (82.0-101.0) Mean Corpuscular Hemoglobin 22.4 pg (29.0-33.0) Mean Corpuscular 29.0 g/dl (32.0-37.0) Hemoglobin Concent Red Cell Distribution Width 22.7 % (11.5-14.5) Platelet Count 181 10^3/UL (140-415) Mean Platelet Volume 9.8 fl (7.4-10.4) Immature Granulocytes % 5.600 % (0.001-0.429) Neutrophils % % (39.0-77.0) Segmented Neutrophils 74 % (39-77) % (Manual) Band Neutrophils % (Manual) 5 % (0-4) Lymphocytes % % (15.0-51.0) Lymphocytes % (Manual) 14 % (15-51) Monocytes % % (0.0-11.0) Monocytes % (Manual) 4 % (0-11) Eosinophils % % (0.0-7.0) Eosinophils % (Manual) 1 % (0-7) Basophils % % (0.0-2.0) Myelocytes % (Manual) 2 % (0-0) Nucleated Red Blood Cells % 0.1 /100WBC (0.0-0.0) Immature Granulocytes # 0.810 10^3/ul (0.0-0.031) Neutrophils # 10^3/ul (1.6-7.5) Neutrophils # (Manual) 10.8 10^3/ul (1.6-7.5) Band Neutrophils # 0.7 10^3/ul (0.0-0.6) Lymphocytes (Manual) 2.0 10^3/ul (0.8-2.9) Lymphocytes # 10^3/ul (0.8-2.9) Monocytes # 10^3/ul (0.3-0.9) Monocytes # (Manual) 0.5 10^3/ul (0.3-0.9) Eosinophils # 10^3/ul (0.0-0.5) Basophils # 10^3/ul (0.0-0.1) Myelocytes # 0.2 10^3/ul (0.0-0.0) Nucleated Red Blood Cells # 10^3/ul (0.0-0.0) Platelet Estimate NORMAL Polychromasia 1+ (0-0) Hypochromasia 2+ (0-0) Poikilocytosis 2+ (0-0) Anisocytosis 1+ (0-0) Microcytosis 1+ (0-0) Ovalocytes 1+ (0-0) Sodium Level 139 mmol/L (135-144) Chloride Level 107 mmol/L (97-110) Carbon Dioxide Level 27 mmol/L (21-31) Anion Gap 5 (5-13) Blood Urea Nitrogen 23 mg/dl (7-20) Creatinine 0.50 mg/dl (0.44-1.00) Est Glomerular Filtrat > 60 mL/min (>60) Rate mL/min Glucose Level 100 mg/dl (70-220) Calcium Level 8.2 mg/dl (8.4-10.2) Phosphorus Level 4.4 mg/dl (2.5-4.9) Magnesium Level 1.9 mg/dl (1.7-2.5) MALVIN CLINTON Jul 17, 2018 11:36
[2018-07-17] MEDS ORDERED: FER325 PO (11:38)
[2018-07-17] MEDS ORDERED: ALBU8.5H8 INH (11:38)
== END 2018-07-17 16:08 | disposition home or self-care (01) | DRG 190 ==
LOC: E/R 14:22 → TEL 17:53
PROVIDERS: ADMIT Internal Medicine; ATTEND Internal Medicine
PROC: 5A09357 Assistance with Respiratory Ventilation, Less than 24 Consecutive Hours, Continuous Positive Airway Pressure (ICD-10-PCS; principal; 2018-07-09)
DX: J44.1 Chronic obstructive pulmonary disease with (acute) exacerbation (principal); J96.01 Acute respiratory failure with hypoxia; N39.0 Urinary tract infection, site not specified; K74.60 Unspecified cirrhosis of liver; K27.9 Peptic ulcer, site unspecified, unspecified as acute or chronic, without hemorrhage or perforation; F17.200 Nicotine dependence, unspecified, uncomplicated; D64.9 Anemia, unspecified; J44.0 Chronic obstructive pulmonary disease with (acute) lower respiratory infection; J20.9 Acute bronchitis, unspecified; R00.0 Tachycardia, unspecified; Z59.0 Homelessness
CPT/HCPCS: 36415; 36600; 71045; 71250; 80048; 80053; 80307; 81001; 82803; 83036; 83540; 83605; 83735; 83880; 84100; 84132; 84443; 84484; 85025; 85610; 85730; 87040; 87081; 87086; 90686; 93005; 94640; 94644; 94664; 96374; J0692; J1956; J2916; J2920; J2930; J3370; J7030; J7050; J7512